=== PATIENT | female | born 1945 | race Caucasian/White ===

== ENCOUNTER → 2018-08-24 09:56 | Outpatient (CLI) | payer MEDICARE, SELFPAY ==
--- NOTE | 2018-08-24 10:00 | XR_ITS ---
XR DEXA axial skeleton HISTORY: ITS.REASON: OSTEOPENIA ORDERING PHYSICIAN: Uzair Miller MD PATIENT AGE: 73 years COMPARISON: 07/31/2016 FINDINGS: The BMD measured at the Left femoral neck is 0.775 g/cm squared with a T score of -1.9. This is considered Osteopenic according to the World Health Organization criteria. Fracture risk is Moderate. Treatment is advised. The L1 L4 density has a T score of 1.5 and has increased by 4.4%. The hip density has decreased by 1.8%. IMPRESSION: Osteopenia with moderate fracture risk. Treatment is advised. Suggest follow-up exam July 2020
== END ==
PROVIDERS: PCP Family Medicine; Visit Provider Family Medicine
DX: M85.89 Other specified disorders of bone density and structure, multiple sites (principal)
CPT/HCPCS: 77080

== ENCOUNTER 2018-10-08 08:16 | Observation (INO) ==
[2018-10-08 08:11] LABS: Basophils % 0.5 % (0.1-2.0); Eosinophils # 0.1 K/mm3 (0.0-0.4); Hemoglobin 11.7 g/dL (12.2-16.2); Lymphocytes # 1.5 K/mm3 (0.7-4.5); Lymphocytes % 24.9 % (10-50); Mean Corpuscular HGB Conc 33.5 g/dL (31.8-35.4); Mean Corpuscular Volume 83.6 fl (81-99); Mean Platelet Volume 8.2 fl (7.4-10.4); Monocytes # 0.4 K/mm3 (0.1-1.0); Monocytes % 7.6 % (1.7-9.3); Neutrophils # 3.8 K/mm3 (1.8-7.8); Neutrophils % 65.1 % (37.0-80.0); Platelet Count 138 K/mm3 (142-424); Red Blood Count 4.19 M/mm3 (4.20-5.40); Red Cell Distribution Width 13.2 % (11.5-17.5); White Blood Count 5.8 K/mm3 (4.8-10.8)
--- NOTE | 2018-10-08 08:21 | Emergency Department Note ---
ED Disposition Clinical Impression: Bradycardia Disposition: Admitted as Observation Condition on Discharge: Good Instructions: DI for Gastrointestinal Bleeding Time of Disposition: 09:07 - Critical Care Critical Care Time: No Attestation: On , the high probability of a clinically significant, sudden or life threatening deterioration of the following system(s) required my full and direct attention, intervention and personal management. The time I documented below is in addition to time spent performing reported procedures but includes the following listed in this critical care notation. Medical Decision Making - Medical Records Medical records reviewed: Yes: I reviewed the patient's medical records. - David Inquiry Pt receiving controlled substance: No David was queried for this patient: No Vital Signs: 10/08/18 07:47 10/08/18 07:54 10/08/18 08:16 Temperature 98.2 F Temperature Source Oral Pulse Rate [Right Radial] 45 L 48 L 54 L Respiratory Rate 16 Blood Pressure [Right Arm] 154/62 H 166/77 H 165/75 H Blood Pressure Mean [Right Arm] 92 106 105 Blood Pressure Source [Right Arm] Automatic Cuff Blood Pressure Position [Right Arm] Sitting 02 Sat by Pulse Oximetry 100 100 99 Oxygen Delivery Method Room Air 10/08/18 08:30 Temperature Temperature Source Pulse Rate [Right Radial] 51 L Respiratory Rate Blood Pressure [Right Arm] 174/70 H Blood Pressure Mean [Right Arm] 104 Blood Pressure Source [Right Arm] Blood Pressure Position [Right Arm] 02 Sat by Pulse Oximetry 99 Oxygen Delivery Method - Lab Data Lab results reviewed: Yes: I reviewed the patient's lab results. Lab Results 10/08/18 08:00: WBC 5.8, RBC 4.19 L, Hgb 11.7 L, Hct 35.0 L, MCV 83.6, MCH 28.0, MCHC 33.5, RDW 13.2, Plt Count 138 L, MPV 8.2, Neut % (Auto) 65.1, Lymph % (Auto) 24.9, [place] % (Auto) 7.6, Eos % (Auto) 2.0, Baso % (Auto) 0.5, Neut # (Auto) 3.8, Lymph # (Auto) 1.5, [place] # (Auto) 0.4, Eos # (Auto) 0.1, Baso # (Auto) 0.0 10/08/18 08:00: Sodium 137, Potassium 3.5, Chloride 103, Carbon Dioxide 29, Anion Gap 8.5, BUN 19 H, Creatinine 1.11 H, Estimated Creat Clear 40, Estimated GFR 48 L, Est GFR ( Amer) 58 L, Glucose 149 H, Calcium 9.0, Total Bilirubin 0.5, AST 40 H, ALT 84 H, Alkaline Phosphatase 57, Total Protein 6.7, Albumin 3.4, Globulin 3.3 H, Albumin/Globulin Ratio 1.0 L 10/08/18 08:00: PT 10.5, INR 1.01, APTT 22.8 L 10/08/18 08:00: Troponin I 0.04 Result diagrams: 10/08/18 08:00 10/08/18 08:00 Orders (Tests/Meds): ED MEDICATIONS Discontinued Medications Generic Name Dose Route Start Last Admin Trade Name Freq PRN Reason Stop Dose Admin Sodium Chloride 1,000 mls @ 999 mls/hr 10/08/18 07:54 10/08/18 08:10 Sod Chlor 0.9% 1000ml Bag IV 10/08/18 08:54 999 mls/hr .Q1H1M ONE Administration Ondansetron HCl 4 mg 10/08/18 07:54 10/08/18 08:10 Zofran 4mg/2ml Vial IV 10/08/18 07:55 4 mg ONCE ONE Administration ORDERS Category Date Time Status Occult Blood,Stool Stat Lab 10/08/18 07:53 Ordered General Adult HPI - General Chief complaint: GI Bleed Stated complaint: BLOODY STOOL Time Seen by Provider: 10/08/18 08:10 Mode of Arrival: EMS Source of Information: Patient, Significant Other, EMS Limitations: No Limitations Description of Symptoms (Recalled from ER Triage Doc. by RN): PT BROUGHT IN PER EMS WITH C/O BLOODY STOOL THIS AM, CAUSING HER TO PASS OUT WHILE IN THE BATHROOM. PT WAS FOUND BY WITH NO KNOWN INJURIES FROM FALL. PT C/O NAUSEA AND BRADYCARDIA SINCE THIS AM. PT ADVISES THAT SHE HAD HER FIRST COLONOSCOPY ON THURSDAY OF THIS WEEK. - History of Present Illness HPI narrative: syncope this am in the bathroom, heard her hit the floor. NO injuries. blood was in the toilet. did have colonoscopy thursday in [facility]. single polypectomy. heart rate staying in the 40's here in ED, she's on metoprolol 25 mg am, 25 mg pm with last dose 11 pm - Related Data Allergies Allergy/AdvReac Type Severity Reaction Status Date / Time No Known Allergies Allergy Verified 10/08/18 07:[address] [facility] History - Hepatitis A Screen Drug use history?: No High risk sexual behaviors?: No History of sexually transmitted infection?: No Currently employed?: No Childcare worker?: No Do you have indoor plumbing?: Yes Do you have electricity?: Yes Attestation statement:: This patient has been screened for Hepatitis A risk factors. I have reviewed the patient's past medical history: Yes Medical History: Denies:: Diabetes Mellitus Type 1, Diabetes Mellitus Type 2 - Social History Smoking Status: Never smoker Alcohol Intake: never Occupational Status: retired Household Members: spouse ROS Obtained: Yes All systems reviewed & no additional complaints - Constitutional Constitutional: Reports fatigue - Eyes Eyes: Reports system reviewed and no additional complaints, except as docu - Cardiovascular Cardiovascular: Denies chest pain, Denies dyspnea - Respiratory Respiratory: No chest congestion, No cough, No dyspnea, No dyspnea on exertion - Gastrointestinal Gastrointestingal: Reports: bright red blood in stools. Denies: abdominal pain, nausea, vomiting - Genitourinary Female Genitourinary: Denies dysuria, Denies flank pain - Musculoskeletal Musculoskeletal: Reports system reviewed and no additional complaints, except as docu - Integumentary/Breasts Skin/Breast: Denies rash, Denies skin pain - Neurologic Neurologic: Reports system reviewed and no additional complaints, except as docu, Reports syncope - Hematologic/Lymphatic Henatologic/Lymphatic: Denies easy bleeding, Denies easy bruising Physical Exam - General General appearance: alert, in no apparent distress - Head Head exam: atraumatic - Eye Eye exam: Present: normal appearance - ENT ENT exam: Present: normal exam, normal oropharynx, mucous membranes moist, TM's normal bilaterally, normal external ear exam - Respiratory Respiratory exam: Present: normal lung sounds bilaterally. Absent: respiratory distress - Cardiovascular Cardiovascular exam: Present: bradycardia, other (rate is 40-45) - Abdominal Exam Abdominal exam: Present: soft. Absent: distention, tenderness - Extremities Exam Extremities exam: Present: normal inspection, full ROM, normal capillary refill. Absent: calf tenderness - Back Exam Back exam: Present: normal inspection. Absent: tenderness - Neurological Exam Neurological exam: Present: alert, oriented X3 - Psychiatric Psychiatric exam: Present: normal affect, normal mood - Skin Skin exam: Present: warm, dry, intact, normal color
[2018-10-08 08:29] LABS: Albumin Level 3.4 gm/dL (3.4-5.0); Anion Gap 8.5 mEq/L (5-15); Bilirubin,Total 0.5 mg/dL (0.2-1.0); Globulin 3.3 gm/dl (1.3-3.2); Total Protein,Serum 6.7 gm/dL (6.4-8.2)
[2018-10-08 08:43] LABS: Activated Partial Thrombo Time 22.8 seconds (23.6-34.0); INR 1.01 (0.9-1.1); Prothrombin Time 10.5 seconds (9.4-11.8)
--- NOTE | 2018-10-08 09:59 | History & Physical Report ---
*Admission Date: 10/08/18 <Marlyn Calvert 10/08/18 10:03> *Chief complaint: syncope <Marlyn Calvert 10/08/18 10:03> *History of present illness: Ms. Mahan is a 73-year-old female who just recently had a colonoscopy 10/06/18. She did have a polyp removed and this morning when she went to the bathroom, her heard a thud and went to check on her. She does not remember what happened but he found her on the floor unconscious. He noticed some blood in the toilet and states it was bright red in nature. He brought her to the emergency room for evaluation. Her H&H was normal but she was bradycardic with heart rates in the 40-60 range. She does currently take a beta -terri. She will be admitted for observation. Her beta-terri will be held and her H&H will be monitored. <Marlyn Calvert 10/08/18 11:19> [facility] History I have reviewed the patient's past medical history: Yes <Marlyn Calvert 10/08/18 10:03> Medical History: Reports:: Cancer (breast), Hyperlipidemia, Hypertension Denies:: Diabetes Mellitus Type 1, Diabetes Mellitus Type 2 <Marlyn Calvert 10/08/18 10:03> *Have you ever received a pneumonia vaccine?: Yes <Marlyn Calvert 10/08/18 10:03> *Have you received a flu vaccine this season?: Yes <Marlyn Calvert 10/08/18 10:03> Other Medical History: Reports: Other (hyperthyroidism s/p ablation, palpitations, lumbar spinal stenosis) <Marlyn Calvert 10/08/18 11:19> Other Surgeries: Yes: Hysterectomy-Partial, Tubal Ligation, Other (left lumpectomy, lumbar laminectomy) <Marlyn Calvert 10/08/18 11:19> - *Social History Smoking Status: Never smoker <Marlyn Calvert 10/08/18 10:03> Alcohol Intake: never <Marlyn Calvert 10/08/18 10:03> *Occupational Status:: retired <Marlyn Calvert 10/08/18 10:03> Household Members: spouse <Marlyn Calvert - 10/08/18 10:03> *Travel in the last 8 weeks: None <Marlyn Calvert 10/08/18 10:03> Family Hx:: Cancer <Marlyn Calvert 10/08/18 10:03> Review of Systems - Constitutional Reports chills, Denies fever(s), Denies weakness <Marlyn Calvert 10/08/18 11:19> - Eyes Denies blurry vision, Denies double vision <Marlyn Calvert 10/08/18 11:19> - ENT Denies nasal congestion, Denies sore throat <Marlyn Calvert 10/08/18 11:19> - *Cardiovascular Denies chest pain, Denies shortness of breath, Denies rapid, pounding, or irregular heartbeat <Marlyn Calvert 10/08/18 11:19> - *Respiratory Denies cough, Denies shortness of breath <Marlyn Calvert 10/08/18 11:19> - *Gastrointestinal Reports abdominal pain (cramps), Reports loose stools, Reports bright, red blood in stools, Reports nausea, Denies vomiting <Marlyn Calvert 10/08/18 11:19> - *Genitourinary Denies difficulty urinating, Denies painful urination <Marlyn Calvert 10/08/18 11:19> - *Musculoskeletal Denies joint pain <Marlyn Calvert 10/08/18 11:19> - *Neurologic Reports fainting, Denies frequent falls, Denies headache(s), Denies dizziness <Marlyn Calvert 10/08/18 11:19> Meds Home Medications Medication Instructions Recorded Confirmed Type Aspirin [Aspirin 81mg EC Tab] 81 mg PO DAILY 10/08/18 10/08/18 History Levothyroxine Sodium 75 mcg PO DAILY 10/08/18 10/08/18 History [Levothyroxine 75mcg (0.075mg) Tab] Lisinopril/Hydrochlorothiazide 2 tab PO DAILY 10/08/18 10/08/18 History [Lisinopril-Hctz 20-12.5 mg Tab] Metoprolol Tartrate [Lopressor 25 mg PO BID 10/08/18 10/08/18 History 25mg tablet] Simvastatin 20 mg PO HS 10/08/18 10/08/18 History <Uzair Miller - 10/08/18 17:54> Allergies Allergy/AdvReac Type Severity Reaction Status Date / Time No Known Allergies Allergy Verified 10/08/18 07:53 <Uzair Miller - 10/08/18 17:54> Exam Vital signs and Labs for Last 24 Hours: Temp Pulse Resp BP Pulse Ox 98.2 F 62 15 145/62 H 100 10/08/18 15:31 10/08/18 16:00 10/08/18 15:31 10/08/18 15:31 10/08/18 15:31 Laboratory Results - last 24 hr 10/08/18 08:00: WBC 5.8, RBC 4.19 L, Hgb 11.7 L, Hct 35.0 L, MCV 83.6, MCH 28.0, MCHC 33.5, RDW 13.2, Plt Count 138 L, MPV 8.2, Neut % (Auto) 65.1, Lymph % (Auto) 24.9, [place] % (Auto) 7.6, Eos % (Auto) 2.0, Baso % (Auto) 0.5, Neut # (Auto) 3.8, Lymph # (Auto) 1.5, [place] # (Auto) 0.4, Eos # (Auto) 0.1, Baso # (Auto) 0.0 10/08/18 08:00: Sodium 137, Potassium 3.5, Chloride 103, Carbon Dioxide 29, Anion Gap 8.5, BUN 19 H, Creatinine 1.11 H, Estimated Creat Clear 40, Estimated GFR 48 L, Est GFR ( Amer) 58 L, Glucose 149 H, Calcium 9.0, Total Bilirubin 0.5, AST 40 H, ALT 84 H, Alkaline Phosphatase 57, Total Protein 6.7, Albumin 3.4, Globulin 3.3 H, Albumin/Globulin Ratio 1.0 L 10/08/18 08:00: PT 10.5, INR 1.01, APTT 22.8 L 10/08/18 08:00: Troponin I 0.04 10/08/18 12:25: Hgb 11.3 L, Hct 33.8 L 10/08/18 12:25: Troponin I 0.05 10/08/18 15:11: Hgb 10.4 L, Hct 30.6 L 10/08/18 15:11: Troponin I 0.04 <PaulUzair Urbano - 10/08/18 17:54> Temp Pulse Resp BP Pulse Ox 98.2 F 49 L 16 158/64 H 100 10/08/18 07:47 10/08/18 09:30 10/08/18 07:47 10/08/18 09:30 10/08/18 09:30 Laboratory Results - last 24 hr 10/08/18 08:00: WBC 5.8, RBC 4.19 L, Hgb 11.7 L, Hct 35.0 L, MCV 83.6, MCH 28.0, MCHC 33.5, RDW 13.2, Plt Count 138 L, MPV 8.2, Neut % (Auto) 65.1, Lymph % (Auto) 24.9, [place] % (Auto) 7.6, Eos % (Auto) 2.0, Baso % (Auto) 0.5, Neut # (Auto) 3.8, Lymph # (Auto) 1.5, [place] # (Auto) 0.4, Eos # (Auto) 0.1, Baso # (Auto) 0.0 10/08/18 08:00: Sodium 137, Potassium 3.5, Chloride 103, Carbon Dioxide 29, Anion Gap 8.5, BUN 19 H, Creatinine 1.11 H, Estimated Creat Clear 40, Estimated GFR 48 L, Est GFR ( Amer) 58 L, Glucose 149 H, Calcium 9.0, Total Bilirubin 0.5, AST 40 H, ALT 84 H, Alkaline Phosphatase 57, Total Protein 6.7, Albumin 3.4, Globulin 3.3 H, Albumin/Globulin Ratio 1.0 L 10/08/18 08:00: PT 10.5, INR 1.01, APTT 22.8 L 10/08/18 08:00: Troponin I 0.04 <Marlyn Calvert - 10/08/18 10:03> I & O for Last 24 hours: Intake & Output 10/06/18 10/07/18 10/08/18 10/09/18 11:59 11:59 11:59 11:59 Intake Total 480 / 480 Output Total 300 / 300 1050 / 1050 Balance -300 / -300 -570 / -570 Weight 124 lb 2 oz <Uzair Miller - 10/08/18 17:54> Intake & Output 10/05/18 10/06/18 10/07/18 10/08/18 11:59 11:59 11:59 11:59 Weight 125 lb <Marlyn Calvert 10/08/18 10:03> - Constitutional no acute distress <Marlyn Calvert 10/08/18 11:19> - *Routine HEENT Exam Head: Present: normocephalic <Marlyn Calvert 10/08/18 11:19> Eye: Present: EOMI, PERRL <Marlyn Calvert 10/08/18 11:19> ENT: Present: mucous membranes dry <Marlyn Calvert 10/08/18 11:19> - *Routine Neck Exam Present: supple. Absent: lymphadenopathy <Marlyn Calvert 10/08/18 11:19> - *Routine Respiratory Exam Present: CTA bilaterally <Marlyn Calvert 10/08/18 11:19> - *Routine Cardiovascular Exam Present: RRR <Marlyn Calvert 10/08/18 11:19> - *Routine Abdominal Exam Present: soft, normoactive bowel sounds. Absent: tenderness <Marlyn Calvert 10/08/18 11:19> - *Routine Extremities Exam Absent: cyanosis, clubbing, edema <Marlyn Calvert 10/08/18 11:19> - *Routine Skin Exam Present: warm. Absent: rash <Marlyn Calvert 10/08/18 11:19> - *Routine Neurological Exam Present: alert, oriented X3 <[facility] 10/08/18 11:19> Assessment and Plan (1) Bradycardia Current visit: Yes Status: Acute Category: Medical Code(s): R00.1 - Bradycardia, unspecified (2) Syncope Current visit: Yes Status: Acute Category: Medical Code(s): R55 - Syncope and collapse (3) Rectal bleeding Current visit: Yes Status: Acute Category: Medical Code(s): K62.5 - Hemo rrhage of anus and rectum (4) Status post colonoscopy with polypectomy Current visit: Yes Status: Acute Category: Surgical Code(s): Z98.890 - Other specified postprocedural states (5) Hypertension Current visit: Yes Status: Chronic Category: Medical Code(s): I10 - Essential (primary) hypertension (6) Hyperlipidemia Current visit: Yes Status: Chronic Category: Medical Code(s): E78.5 - Hyperlipidemia, unspecified (7) History of breast cancer Current visit: Yes Status: Chronic Category: Medical Code(s): Z85.3 - Personal history of malignant neoplasm of breast <Marlyn Calvert - 10/08/18 11:15> (1) Bradycardia Current visit: Yes Status: Acute Category: Medical Code(s): R00.1 - Bradycardia, unspecified (2) Syncope Current visit: Yes Status: Acute Category: Medical Code(s): R55 - Syncope and collapse (3) Rectal bleeding Current visit: Yes Status: Acute Category: Medical Code(s): K62.5 - Hemorrhage of anus and rectum (4) Status post colonoscopy with polypectomy Current visit: Yes Status: Acute Category: Surgical Code(s): Z98.890 - Other specified postprocedural states (5) Hypertension Current visit: Yes Status: Chronic Category: Medical Code(s): I10 - Essential (primary) hypertension (6) Hyperlipidemia Current visit: Yes Status: Chronic Category: Medical Code(s): E78.5 - Hyperlipidemia, unspecified (7) History of breast cancer Current visit: Yes Status: Chronic Category: Medical Code(s): Z85.3 - Personal history of malignant neoplasm of breast <Uzair Miller - 10/08/18 17:54> - Assessment and plan all Dx Assessment and Plan for all problems:: Patient seen and examined. Concur with asssessment and plan as outlined. <Uzair Miller - 10/08/18 17:54> Patient will be admitted and placed on telemetry to monitor HR. Her beta terri will be held. Will monitor H&H and rectal bleeding as well. <Marlyn Calvert - 10/08/18 11:19>
--- NOTE | 2018-10-08 10:34 | Pharmacy Consult Notes ---
[facility] Pharmacy VTE Monitoring - Patient Demographics Admission date: 10/08/18 Report Date: 10/08/18 Time: 10:34 Allergies/Adverse Reactions: Patient Allergies No Known Allergies Allergy (Verified 10/08/18 07:53) Height: 1.52 m Weight: 56.699 kg Patient Problems: Current Active Problems (Updated 10/08/18 @ 10:03 by LANDON Love) Bradycardia (Acute) Syncope (Acute) Rectal bleeding (Acute) Status post colonoscopy with polypectomy (Acute) Hypertension (Chronic) Hyperlipidemia (Chronic) History of breast cancer (Chronic) - VTE Risk Labs: VTE Related Lab Results Hgb 11.7 g/dL (12.2-16.2) L 10/08/18 08:00 Hct 35.0 % (37.0-47.0) L 10/08/18 08:00 Plt Count 138 K/mm3 (142-424) L 10/08/18 08:00 PT 10.5 seconds (9.4-11.8) 10/08/18 08:00 INR 1.01 (0.9-1.1) 10/08/18 08:00 APTT 22.8 seconds (23.6-34.0) L 10/08/18 08:00 BUN 19 mg/dL (7-18) H 10/08/18 08:00 Creatinine 1.11 mg/dL (0.55-1.02) H 10/08/18 08:00 Estimated Creat Clear 40 mL/min (50-200) 10/08/18 08:00 - Prophylaxis VTE Prophylaxis Ordered?: Yes Types of VTE Prophylaxis: TEDS Knee High Location of Applied Device: Bilateral Lower Extremeties - VTE Diagnosis Confirmed Treatment or plan recommended: Continue Current Treatment
[2018-10-08 12:42] LABS: Hematocrit 33.8 % (37.0-47.0); Hemoglobin 11.3 g/dL (12.2-16.2)
[2018-10-08 16:08] LABS: Hematocrit 30.6 % (37.0-47.0); Hemoglobin 10.4 g/dL (12.2-16.2)
[2018-10-08 18:26] LABS: Hematocrit 30.6 % (37.0-47.0); Hemoglobin 10.4 g/dL (12.2-16.2)
[2018-10-09 07:00] LABS: Anion Gap 11.3 mEq/L (5-15); Calcium 8.3 mg/dL (8.5-10.1)
--- NOTE | 2018-10-09 08:22 | Progress Note ---
Internal Medicine - PN: Subj *Date: 10/09/18 *Time: 13:10 Interval history: States that she rested well last night. She feels good this morning. She has been up to the bathroom and is tolerating activity with no lightheadedness or dizziness. No complaints of chest pain or shortness of breath. Exam Vital signs and Labs for Last 24 Hours: Temp Pulse Resp BP Pulse Ox 98.2 F 73 17 161/54 H 98 10/09/18 07:37 10/09/18 07:37 10/09/18 07:37 10/09/18 07:37 10/09/18 07:37 Laboratory Results - last 24 hr 10/08/18 08:00: Sodium 137, Potassium 3.5, Chloride 103, Carbon Dioxide 29, Anion Gap 8.5, BUN 19 H, Creatinine 1.11 H, Estimated Creat Clear 40, Estimated GFR 48 L, Est GFR ( Amer) 58 L, Glucose 149 H, Calcium 9.0, Total Bilirubin 0.5, AST 40 H, ALT 84 H, Alkaline Phosphatase 57, Total Protein 6.7, Albumin 3.4, Globulin 3.3 H, Albumin/Globulin Ratio 1.0 L 10/08/18 08:00: PT 10.5, INR 1.01, APTT 22.8 L 10/08/18 08:00: Troponin I 0.04 10/08/18 12:25: Hgb 11.3 L, Hct 33.8 L 10/08/18 12:25: Troponin I 0.05 10/08/18 15:11: Hgb 10.4 L, Hct 30.6 L 10/08/18 15:11: Troponin I 0.04 10/08/18 18:19: Hgb 10.4 L, Hct 30.6 L 10/09/18 06:10: Sodium 142, Potassium 3.3 L, Chloride 108 H, Carbon Dioxide 26, Anion Gap 11.3, BUN 10 D, Creatinine 1.02, Estimated Creat Clear 43, Estimated GFR 53 L, Est GFR ( Amer) 64, Glucose 110 H D, Calcium 8.3 L I & O for Last 24 hours: Intake & Output 10/06/18 10/07/18 10/08/18 10/09/18 11:59 11:59 11:59 11:59 Intake Total 2190 / 2190 Output Total 300 / 300 2250 / 2250 Balance -300 / -300 -60 / -60 Weight 124 lb 2 oz 124 lb 5 oz Narrative: She is alert and oriented. She appears in no distress. Color is normal. Lungs are clear to auscultation. Heart is regular with no ectopy. Heart rate is in the 50s. Extremities no edema. Assessment and Plan (1) Bradycardia Status: Acute Category: Medical Code(s): R00.1 - Bradycardia, unspecified (2) Syncope Status: Acute Category: Medical Code(s): R55 - Syncope and collapse (3) Rectal bleeding Status: Acute Category: Medical Code(s): K62.5 - Hemorrhage of anus and rectum (4) Status post colonoscopy with polypectomy Status: Acute Category: Surgical Code(s): Z98.890 - Other specified postprocedural states (5) Hypertension Status: Chronic Category: Medical Code(s): I10 - Essential (primary) hypertension (6) Hyperlipidemia Status: Chronic Category: Medical Code(s): E78.5 - Hyperlipidemia, unspecified (7) History of breast cancer Status: Chronic Category: Medical Code(s): Z85.3 - Personal history of malignant neoplasm of breast - Assessment and plan all Dx Assessment and Plan for all problems:: She is stable for discharge. H&H is stable. Bradycardia should continue to improve as she remains off the metoprolol. She will be started on Norvasc for blood pressure control. She will continue her lisinopril. She will also be prescribed a potassium supplement for the next 2 weeks. She is to follow-up in the office for recheck in 5 days.
[2018-10-09 08:27] LABS: Basophils % 0.7 % (0.1-2.0); Eosinophils # 0.2 K/mm3 (0.0-0.4); Eosinophils % 3.9 % (0.1-12.0); Hematocrit 30.3 % (37.0-47.0); Lymphocytes # 1.7 K/mm3 (0.7-4.5); Lymphocytes % 34.8 % (10-50); Mean Corpuscular HGB Conc 33.1 g/dL (31.8-35.4); Mean Platelet Volume 8.6 fl (7.4-10.4); Monocytes # 0.4 K/mm3 (0.1-1.0); Monocytes % 8.4 % (1.7-9.3); Neutrophils # 2.5 K/mm3 (1.8-7.8); Neutrophils % 52.3 % (37.0-80.0); Platelet Count 124 K/mm3 (142-424); Red Cell Distribution Width 13.6 % (11.5-17.5); White Blood Count 4.8 K/mm3 (4.8-10.8)
--- NOTE | 2018-10-11 09:38 | Discharge Summary ---
General - General Admission date:: 10/08/18 <Uzair Miller - 10/12/18 20:03> 10/08/18 <Minda Barros - 10/11/18 09:38> Discharge date: 10/09/18 <Minda Barros - 10/11/18 09:43> HPI HPI: Ms. Mahan was a 73-year-old female who had just recently had a colonoscopy on 10/06/18. She did have a polyp removed and on the morning of admission, when she went to the bathroom, her heard a thud and went to check on her. She did not remember what happened but he found her on the floor unconscious. He noticed some blood in the toilet and stated it was bright red in nature. He brought her to the emergency room for evaluation. Her H&H was normal but she was bradycardic with heart rates in the 40-60 range. She was taking a beta- terri. She was admitted for observation. Her beta-terri was held and her H&H was monitored. <Minda Barros - 10/11/18 09:43> Hospital Course Hospital Course: The following morning she was feeling well. Her bradycardia was improved. Her H&H was stable. She was started on Norvasc for blood pressure control and instructed to remain off her beta-terri. She was started on oral potassium supplement. She was felt to be stable for discharge with followup in the office in 5 days. <Minda Barros - 10/11/18 09:43> Objective Vital signs: Temp Pulse Resp BP Pulse Ox 98.2 F 56 L 17 161/54 H 98 10/09/18 07:37 10/09/18 08:00 10/09/18 07:37 10/09/18 07:37 10/09/18 07:37 <PaulUzair Urbano - 10/12/18 20:03> Temp Pulse Resp BP Pulse Ox 98.2 F 56 L 17 161/54 H 98 10/09/18 07:37 10/09/18 08:00 10/09/18 07:37 10/09/18 07:37 10/09/18 07:37 <Minda Barros - 10/11/18 09:38> DS: Diagnosis - Discharge Diagnosis (1) Bradycardia Status: Acute (2) Syncope Status: Acute (3) Rectal bleeding Status: Acute (4) Status post colonoscopy with polypectomy Status: Acute (5) Hypertension Status: Chronic (6) Hyperlipidemia Status: Chronic (7) History of breast cancer Status: Chronic <Minda Barros - 10/11/18 09:38> (1) Bradycardia Status: Acute (2) Syncope Status: Acute (3) Rectal bleeding Status: Acute (4) Status post colonoscopy with polypectomy Status: Acute (5) Hypertension Status: Chronic (6) Hyperlipidemia Status: Chronic (7) History of breast cancer Status: Chronic <Uzair Miller - 10/12/18 20:03> Discharge Plan - Patient Discharge Instructions ACTIVITY: Continue current activity <Minda Barros - 10/11/18 09:38> DIET: continue same diet <Minda Barros - 10/11/18 09:38> Patient Instructions: DI for Syncope in Adults (Fainting), DI for Rectal Bleeding, DI for Bradycardia <Uzair Miller - 10/12/18 20:03> Forms: <Uzair Miller - 10/12/18 20:03> - Follow up Plan Follow up with: Uzair Miller MD [Primary Care Provider] - 10/14/18 (in [facility]) <Uzair Miller - 10/12/18 20:03> Disposition: Home, Self-Care <Uzair Miller - 10/12/18 20:03> Home Medications: Home Medications Medication Instructions Recorded Confirmed Type Aspirin [Aspirin 81mg EC Tab] 81 mg PO DAILY 10/08/18 10/08/18 History Levothyroxine Sodium 75 mcg PO DAILY 10/08/18 10/08/18 History [Levothyroxine 75mcg (0.075mg) Tab] Lisinopril/Hydrochlorothiazide 2 tab PO DAILY 10/08/18 10/08/18 History [Lisinopril-Hctz 20-12.5 mg Tab] Simvastatin 20 mg PO HS 10/08/18 10/08/18 History Amlodipine Besylate [Norvasc 2.5mg 0 mg PO DAILY #30 tab 10/09/18 Rx tablet] Potassium Chloride [Micro-K 10mEq 10 meq PO DAILY #15 cap 10/09/18 Rx cap] <Uzair Miller - 10/12/18 20:03> Prescriptions/Medication Reconciliation: New Potassium Chloride [Micro-K 10mEq cap] 10 meq PO DAILY #15 cap Amlodipine Besylate [Norvasc 2.5mg tablet] 0 mg PO DAILY #30 tab Continued Simvastatin 20 mg PO HS Levothyroxine Sodium [Levothyroxine 75mcg (0.075mg) Tab] 75 mcg PO DAILY Lisinopril/Hydrochlorothiazide [Lisinopril-Hctz 20-12.5 mg Tab] 2 tab PO DAILY Aspirin [Aspirin 81mg EC Tab] 81 mg PO DAILY Discontinued Metoprolol Tartrate [Lopressor 25mg tablet] 25 mg PO BID <Uzair Miller - 10/12/18 20:03> - Additional Information Additional Information: Concur with plan for discharge as outlined above. <Uzair Miller - 10/12/18 20:03>
== END 2018-10-09 09:55 | disposition home or self-care (01) ==
LOC: 2ND 08:16 → ER 08:16 → 2ND 10:22
PROVIDERS: ADMIT Family Medicine; ATTEND Family Medicine
DX: Z85.3 Personal history of malignant neoplasm of breast; R00.1 Bradycardia, unspecified; Z79.899 Other long term (current) drug therapy; E78.5 Hyperlipidemia, unspecified; K62.5 Hemorrhage of anus and rectum; R55 Syncope and collapse; I10 Essential (primary) hypertension; Z86.010 Personal history of colon polyps; Z98.890 Other specified postprocedural states
CPT/HCPCS: 36415; 80048; 80053; 84484; 85014; 85018; 85025; 85610; 85730; 93005; 96365; 96375; 99285; G0378; J2405

== ENCOUNTER → 2019-11-15 12:56 | Outpatient (CLI) | payer MEDICARE, SELFPAY ==
[2019-11-15 13:47] LABS: Chloride 101 mmol/L (98-107); Sodium 139 mmol/L (136-145)
[2019-11-15 13:48] LABS: Potassium 4.6 mmoL/L (3.5-5.1)
[2019-11-15 13:50] LABS: Blood Urea Nitrogen 18 mg/dl (7-17); Estimated Glomerular Filt Rate 48 ml/min (>60); GFR (African American) 59 ML/MIN (>60)
[2019-11-15 13:51] LABS: Anion Gap 11.6 mEq/L (5-15); Calcium 10.1 mg/dl (8.4-10.2); Carbon Dioxide 31 mmol/L (22.0-30.0); Glucose 93 mg/dl (74-100)
[2019-11-15 14:22] LABS: Thyroid Stimulating Hormone 0.42 uIU/mL (0.465-4.68)
[2019-11-16 13:03] LABS: Prolactin 14.7 ng/mL (4.8-23.3)
== END ==
PROVIDERS: Visit Provider Specialist
DX: E03.9 Hypothyroidism, unspecified (principal); D35.2 Benign neoplasm of pituitary gland; E23.7 Disorder of pituitary gland, unspecified; H91.91 Unspecified hearing loss, right ear; H93.11 Tinnitus, right ear; R00.1 Bradycardia, unspecified; R42 Dizziness and giddiness; R90.89 Other abnormal findings on diagnostic imaging of central nervous system; Z87.898 Personal history of other specified conditions
CPT/HCPCS: 36415; 80048; 84146; 84443

== ENCOUNTER → 2019-11-23 08:41 | Outpatient (CLI) | payer MEDICARE, SELFPAY ==
--- NOTE | 2019-11-23 08:42 | MR_ITS ---
PROCEDURE: MR HEAD/BRAIN WO/W CON CLINICAL INDICATION: DEDICATED PITUITARY GLAND-PITUITARY GLAND LESION PT C/O DIZZINESS, FOLLOW-UP FROM PRIOR MRI. 11ML ZAHRAA LOT: [id number] EXP: 01-18 BUN: 18 CREAT: 1.1 GFR: 48 COMPARISON: MR 1.5T MR BRAIN WO from 09/01/2019 outside exam MR 1.5T MR BRAIN WITH from 09/01/2019 outside exam TECHNIQUE: Routine images are performed without and with contrast along with dynamic post enhanced images of the pituitary gland. FINDINGS: No midline shift, mass effect, intracranial hemorrhage, or hydrocephalus is evident. The cerebellopontine angles, cerebellum, and brainstem have an unremarkable appearance. No evidence of acute infarction. There are scattered periventricular and subcortical T2 white matter hyperintensities which are nonspecific and may be due to ischemic gliotic change from microvascular disease. These areas do not demonstrate contrast enhancement. The pituitary gland is enlarged. There is a nonenhancing lesion involving the central left lobe of the pituitary gland. This measures approximately 9 x 7 by 12 mm. This does extend slightly across midline and is causing some deviation of the pituitary stalk toward the right. This does not appear to extend beyond the margins of the pituitary. This does not appear significantly changed compared to the previous exam considering the difference in technique.. There is some downward bowing of the floor of the sella turcica. This was present on the previous study not significantly changed. This does not appear to be in felt in the carotid but does extend slightly along the inferior aspect of the cavernous portion of the carotid. IMPRESSION: 1. 12 x 9 x 7 mm pituitary nodule on the left slightly extending cross midline and causing some deviation of the stalk toward the right consistent with a pituitary macroadenoma. Probably not significantly changed considering the difference in technique 2. Scattered periventricular and subcortical T2 white matter hyperintensity consistent with ischemic gliotic change from microvascular disease. Dictated by: Hero Mendez MD 11/29/2019 13:13 Hero Mendez MD in [facility] 11/29/2019 13:13
== END ==
PROVIDERS: PCP Family Medicine; Visit Provider Specialist
DX: D35.2 Benign neoplasm of pituitary gland (principal); E03.9 Hypothyroidism, unspecified; E23.7 Disorder of pituitary gland, unspecified; H91.91 Unspecified hearing loss, right ear; H93.11 Tinnitus, right ear; R00.1 Bradycardia, unspecified; R42 Dizziness and giddiness; R90.89 Other abnormal findings on diagnostic imaging of central nervous system; Z87.898 Personal history of other specified conditions
CPT/HCPCS: 70553; A9576

== ENCOUNTER → 2019-12-09 10:03 | Outpatient (CLI) | payer MEDICARE, SELFPAY ==
--- NOTE | 2019-12-09 10:04 | CT_ITS ---
PROCEDURE: CT HEAD/BRAIN WO/W CON CLINICAL INDICATION: EVALUATION FOR ACOUSTIC NEUROMA Dizziness COMPARISON: No exams were available for comparison TECHNIQUE: IV Contrast: 100ML OPITRAY [address] Axial images obtained. All CT scans at the facility use one or more dose reduction, viz: automated exposure control, ma/kV adjustment per patient size (including targeted exams where dose is matched to indication, i.e. head), or iterative reconstruction technique. FINDINGS: Pre and post enhanced images are obtained of the brain. No midline shift, mass effect, intracranial hemorrhage, or hydrocephalus is evident. There is generalized atrophy with hypoattenuation of the periventricular white matter consistent with microangiopathic changes.. No enhancing lesions are evident. No acute calvarial abnormality. No mastoid effusion or sinus air-fluid level. IMPRESSION: No acute intracranial findings. No enhancing cerebellopontine angle mass apparent. Dictated by: Hero Mendez MD 12/09/2019 12:17 Hero Mendez MD in [facility] 12/09/2019 12:17
[2019-12-09 10:52] LABS: Blood Urea Nitrogen 16 mg/dl (7-17); Estimated Glomerular Filt Rate 54 ml/min (>60); GFR (African American) 65 ML/MIN (>60)
== END ==
PROVIDERS: Otolaryngology; PCP Family Medicine; Visit Provider Specialist
DX: D35.2 Benign neoplasm of pituitary gland (principal); E03.9 Hypothyroidism, unspecified; H91.91 Unspecified hearing loss, right ear; H93.11 Tinnitus, right ear; R00.1 Bradycardia, unspecified; R42 Dizziness and giddiness; R90.89 Other abnormal findings on diagnostic imaging of central nervous system; Z87.898 Personal history of other specified conditions
CPT/HCPCS: 36415; 70470; 82565; 84520; Q9967

== ENCOUNTER → 2019-12-09 10:32 | Outpatient (CLI) | payer MEDICARE, SELFPAY | PROVIDERS: Visit Provider Otolaryngology | DX: R42 Dizziness and giddiness (principal) ==

== ENCOUNTER → 2020-01-02 12:46 | Outpatient (CLI) | payer MEDICARE, SELFPAY ==
--- NOTE | 2020-01-02 12:46 | MR_ITS ---
PROCEDURE: MR HEAD/BRAIN WO/W CON CLINICAL INDICATION: rule out acoustic neuroma UNABLE TO HEAR OUT OF RT EAR XYRS. INTERMITTENT DIZZINESS. COMPARISON: MR 1.5T MR BRAIN WITH from 09/01/2019 MR MR HEAD/BRAIN WO/W CON from 11/23/2019 TECHNIQUE: Routine multiplanar multi echo sequences are performed without and with gadolinium enhancement.. Thin section images are obtained through the cerebellopontine angle without and with contrast. FINDINGS: No midline shift or mass effect. No acute intracranial hemorrhage or evidence of acute infarction. There is scattered periventricular and subcortical T2 white matter hyperintensities consistent with ischemic gliotic change from microvascular disease. This does not appear to be significantly changed. The cerebellopontine angles, cerebellum, and brainstem have an unremarkable appearance. No CP angle mass. No enhancing lesions of the CP angle. No mastoid effusion or sinus air-fluid level. There is an isointense nodule of the pituitary gland measuring 1.3 cm AP and 1 cm transverse consistent with a macroadenoma causing mild deviation of the stalk toward the right. This is not significantly changed from an older exam of 09/01/2019. IMPRESSION: 1. No evidence of cerebellopontine angle enhancement or mass. 2. Nonspecific periventricular and subcortical T2 white matter hyperintensities consistent with ischemic gliotic change from microvascular disease. 3. No change left-sided pituitary macro adenoma Dictated by: Hero Mendez MD 01/03/2020 10:34 Hero Mendez MD in [facility] 01/03/2020 10:34
== END ==
PROVIDERS: PCP Family Medicine; Visit Provider Otolaryngology
DX: H91.91 Unspecified hearing loss, right ear (principal)
CPT/HCPCS: 70553; A9576

== ENCOUNTER 2021-01-28 09:54 | Emergency (ER) | payer MEDICARE, SELFPAY ==
[2021-01-28 09:55] VITALS: BP 111/78; PULSE 84; RESP 16; TEMP 36.9; O2SAT 98; BMI 24.4
--- NOTE | 2021-01-28 09:57 | XR_ITS ---
PROCEDURE: XR KNEE LT 3V CLINICAL INDICATION: fall COMPARISON: No exams were available for comparison FINDINGS: No fracture or dislocation. No lytic or blastic change. There is normal mineralization. The joint spaces are well-preserved. No significant degenerative/arthritic changes. No erosive changes evident. Other findings:Chondrocalcinosis is present at the medial and lateral meniscus. Enthesophytes are present at the patella and tibial tuberosity IMPRESSION: No acute findings. Dictated by: Hero Mendez MD 01/28/2021 10:33 Hero Mendez MD in [facility] 01/28/2021 10:33
--- NOTE | 2021-01-28 09:57 | HMH.EDGENADL ---
ED Disposition Clinical Impression: Left knee pain Qualifiers: Chronicity: acute Qualified Code(s): M25.562 - Pain in left knee Disposition: Home, Self-Care Condition on Discharge: Good Additional Instructions: Medications as directed. Follow with your PCP in 1 to 2 days. Return to [facility] for fever, worsening pain, swelling of your knee. Prescriptions: cephALEXin [cephALEXin 500mg capsule*] 500 mg PO Q6H #28 cap Transmission Status: Pending to [facility] Hydrocodone/Acetaminophen [Hydrocodone-Acetamin 5-325 mg] 1 tab PO BID #4 tab Transmission Status: Received by [facility] Referrals: Uzair Miller MD [Primary Care Provider] - (Tomorrow) Time of Disposition: 10:58 - Critical Care Critical Care Time: No Attestation: On , the high probability of a clinically significant, sudden or life threatening deterioration of the following system(s) required my full and direct attention, intervention and personal management. The time I documented below is in addition to time spent performing reported procedures but includes the following listed in this critical care notation. Medical Decision Making - Medical Records Medical records reviewed: Yes: I reviewed the patient's medical records. - David Inquiry Pt receiving controlled substance: No Vital Signs: 01/28/21 09:55 Temperature 98.4 F Temperature Source Oral Pulse Rate [Radial] 84 Respiratory Rate 16 Blood Pressure [Right Arm] 111/78 Blood Pressure Mean [Right Arm] 89 Blood Pressure Position [Right Arm] Sitting 02 Sat by Pulse Oximetry 98 Oxygen Delivery Method Room Air - Radiology Data #1 Image(s): Knee Image Reviewed: Yes I reviewed the patient's radiology results, Yes I have reviewed radiologist's interpretation Preliminary Findings: Normal/NAD Medical Decision Narrative: 75yo F evaluated for pain to her left knee. Patient no acute distress on initial evaluation. Physical exam is significantly limited as the patient will not allow me to complete a thorough knee exam. X-rays obtained and unremarkable. Patient does have some erythema to her knee but I believe this is secondary to irritation from her Band-Aid. Patient has a history of diabetes and therefore I will go ahead and cover her with antibiotics in case the patient has an early cellulitis that is being mistaken for topical irritant from bandaging. General Adult HPI - General Stated complaint: AO fall 01/25 lt knee pain Time Seen by Provider: 01/28/21 09:58 Mode of Arrival: Ambulatory - History of Present Illness HPI narrative: 75[facility] F presents [facility] secondary to left knee pain. Patient reports she fell on Thursday. She reports suffering a mechanical fall. She denies any other injury. She reports she has been walking with a cane since that time. She denies any previous injury or surgery to her left knee. She denies any other injury. Her main complaint this morning is pain. She has not seen her PCP. - Related Data Home Medications Medication Instructions Recorded Confirmed Aspirin [Aspirin 81mg EC Tab] 81 mg PO DAILY 10/08/18 04/05/20 Lisinopril/Hydrochlorothiazide 2 tab PO DAILY 10/08/18 04/05/20 [Lisinopril-Hctz 20-12.5 mg Tab*] meclizine 25 mg tablet 25 mg PO PRN tab 10/18/19 04/05/20 metoprolol tartrate 25 mg tablet 12.5 mg PO DAILY tab 10/18/19 04/05/20 levothyroxine 75 mcg tablet 75 mcg PO tab 04/05/20 04/05/20 Previous Rx's Medication Instructions Recorded Amlodipine Besylate [Norvasc 2.5mg 0 mg PO DAILY #30 tab 10/09/18 tablet] ofloxacin 0.3 % ear drops 10 drp OTIC BID 14 Days #5 ml 04/05/20 Hydrocodone/Acetaminophen 1 tab PO BID #4 tab 01/28/21 [Hydrocodone-Acetamin 5-325 mg] cephALEXin [cephALEXin 500mg 500 mg PO Q6H #28 cap 01/28/21 capsule*] Allergies Allergy/AdvReac Type Severity Reaction Status Date / Time No Known Allergies Allergy Verified 04/05/20 12:35 [facility] History -
[2021-01-28 11:18] VITALS: BP 123/74; PULSE 78; RESP 18; TEMP 36.6; O2SAT 98
== END 2021-01-28 11:21 | disposition home or self-care (01) ==
PROVIDERS: Emergency Provider Family Medicine; PCP Family Medicine
DX: M25.562 Pain in left knee (principal); I10 Essential (primary) hypertension; I25.10 Atherosclerotic heart disease of native coronary artery without angina pectoris; E78.5 Hyperlipidemia, unspecified; E10.9 Type 1 diabetes mellitus without complications; E03.9 Hypothyroidism, unspecified; Z79.899 Other long term (current) drug therapy
CPT/HCPCS: 73562; 99282

== ENCOUNTER → 2021-11-27 06:47 | Outpatient (CLI) | payer MEDICARE, SELFPAY ==
[2021-11-27 22:18] LABS: Basophils # 0.1 K/mm3 (0-0.2); Eosinophils # 0.2 K/mm3 (0.0-0.4); Hematocrit 39.3 % (37.0-47.0); Hemoglobin 12.9 g/dL (12.2-16.2); Lymphocytes # 1.7 K/mm3 (0.7-4.5); Lymphocytes % 31.9 % (10-50); Mean Corpuscular HGB Conc 32.8 g/dL (31.8-35.4); Mean Corpuscular Volume 88.4 fl (81-99); Mean Platelet Volume 10.9 fl (7.4-10.4); Monocytes # 0.6 K/mm3 (0.1-1.0); Monocytes % 11.4 % (1.7-9.3); Neutrophils # 2.7 K/mm3 (1.8-7.8); Neutrophils % 51.7 % (37.0-80.0); Platelet Count 214 K/mm3 (142-424); Red Blood Count 4.45 M/mm3 (4.20-5.40); Red Cell Distribution Width 13.9 % (11.5-17.5); White Blood Count 5.3 K/mm3 (4.8-10.8)
[2021-11-27 22:20] LABS: Creatinine,Urine Random 121 mg/dL (Not Estab.); Microalbumin < 6.000 mg/L (0-16.7)
[2021-11-27 22:32] LABS: Anion Gap 9.7 mEq/L (5-15); Blood Urea Nitrogen 20 mg/dl (7-17); Calcium 9.6 mg/dl (8.4-10.2); Carbon Dioxide 27 mmol/L (22.0-30.0); Chloride 102 mmol/L (98-107); Chol/HDL Ratio 9.2 (1-3.5); Cholesterol 268 mg/dl (140-200); Estimated Glomerular Filt Rate 44 ml/min (>60); GFR (African American) 53 ML/MIN (>60); Glucose 134 mg/dl (74-100); HDL Cholesterol 29 mg/dl (40-60); Potassium 3.7 mmoL/L (3.5-5.1); Sodium 135 mmol/L (136-145)
[2021-11-27 22:34] LABS: Triglycerides 437 mg/dl (30-150)
[2021-11-27 22:48] LABS: Free T4 (Free Thyroxine) 1.54 ng/dl (0.78-2.19)
[2021-11-27 23:02] LABS: Thyroid Stimulating Hormone 0.77 uIU/mL (0.465-4.68)
[2021-11-30 08:21] LABS: Direct LDL Cholesterol 109 mg/dL (100-129)
== END ==
PROVIDERS: PCP Family Medicine; Visit Provider Family Medicine
DX: E03.9 Hypothyroidism, unspecified (principal); E78.5 Hyperlipidemia, unspecified; I10 Essential (primary) hypertension
CPT/HCPCS: 80048; 80061; 82043; 82570; 84439; 84443; 85025

== ENCOUNTER → 2022-04-23 14:25 | Outpatient (CLI) | payer MEDICARE, SELFPAY ==
[2022-04-23 19:36] LABS: Uric Acid 10.4 mg/dl (2.5-6.2)
[2022-04-23 19:46] LABS: Basophils # 0.1 K/mm3 (0-0.2); Basophils % 1.5 % (0.1-2.0); Eosinophils # 0.2 K/mm3 (0.0-0.4); Hematocrit 37.9 % (37.0-47.0); Hemoglobin 13.1 g/dL (12.2-16.2); Lymphocytes # 1.9 K/mm3 (0.7-4.5); Lymphocytes % 32.6 % (10-50); Mean Corpuscular HGB Conc 34.5 g/dL (31.8-35.4); Mean Corpuscular Hemoglobin 29.4 pg (27.0-31.2); Mean Corpuscular Volume 85.2 fl (81-99); Mean Platelet Volume 10.1 fl (7.4-10.4); Monocytes # 0.6 K/mm3 (0.1-1.0); Monocytes % 9.4 % (1.7-9.3); Neutrophils # 3.1 K/mm3 (1.8-7.8); Neutrophils % 52.6 % (37.0-80.0); Platelet Count 242 K/mm3 (142-424); Red Blood Count 4.45 M/mm3 (4.20-5.40); Red Cell Distribution Width 13.6 % (11.5-17.5); White Blood Count 5.9 K/mm3 (4.8-10.8)
[2022-04-23 21:13] LABS: Erythrocyte Sedimentation Rate 25 mm/hr (0-30)
== END ==
PROVIDERS: PCP Family Medicine; Visit Provider Family Medicine
DX: M79.675 Pain in left toe(s) (principal); M10.9 Gout, unspecified
CPT/HCPCS: 84550; 85025; 85651

== ENCOUNTER → 2022-05-19 23:43 | Outpatient (CLI) | payer MEDICARE, SELFPAY ==
[2022-05-19 18:41] LABS: Influenza A, PCR Not Detected (NotDetected); Influenza B, PCR Not Detected (NotDetected)
[2022-05-19 19:28] LABS: Anion Gap 9.4 mEq/L (5-15); Blood Urea Nitrogen 20 mg/dl (7-17); Calcium 9.1 mg/dl (8.4-10.2); Carbon Dioxide 29 mmol/L (22.0-30.0); Chloride 97 mmol/L (98-107); Estimated Glomerular Filt Rate 34 ml/min (>60); GFR (African American) 41 ML/MIN (>60); Glucose 84 mg/dl (74-100); Potassium 3.4 mmoL/L (3.5-5.1); Sodium 132 mmol/L (136-145)
[2022-05-19 21:30] LABS: Coronavirus 19, PCR Detected (NotDetected)
== END ==
PROVIDERS: PCP Nurse Practitioner; Visit Provider Nurse Practitioner
DX: J06.9 Acute upper respiratory infection, unspecified (principal); Z20.822 Contact with and (suspected) exposure to COVID-19; U07.1 COVID-19
CPT/HCPCS: 80048; C9803; U0003; U0005

== ENCOUNTER 2022-11-04 08:15 | Day surgery (SDC) | payer MEDICARE, SELFPAY ==
[2022-10-31 16:58] VITALS: BMI 24.4
[2022-11-04] VITALS (7 sets, daily range): BP systolic 121–165; BP diastolic 57–85; PULSE 54–65; RESP 16–18; TEMP 36.2–36.3; O2SAT 97–100
== END 2022-11-04 11:30 | disposition home or self-care (01) ==
PROVIDERS: PCP Nurse Practitioner; Visit Provider Ophthalmology
DX: H25.811 Combined forms of age-related cataract, right eye (principal)
CPT/HCPCS: 66984; V2632

== ENCOUNTER → 2022-11-11 12:43 | Outpatient (CLI) | payer MEDICARE, SELFPAY ==
[2022-11-11 18:49] LABS: Basophils # 0.1 K/mm3 (0-0.2); Basophils % 0.7 % (0.1-2.0); Eosinophils # 0.2 K/mm3 (0.0-0.4); Eosinophils % 2.7 % (0.1-12.0); Hematocrit 45.1 % (37.0-47.0); Hemoglobin 14.5 g/dL (12.2-16.2); Lymphocytes # 2.7 K/mm3 (0.7-4.5); Lymphocytes % 36.5 % (10-50); Mean Corpuscular HGB Conc 32.2 g/dL (31.8-35.4); Mean Corpuscular Hemoglobin 29.1 pg (27.0-31.2); Mean Corpuscular Volume 90.1 fl (81-99); Mean Platelet Volume 10.8 fl (7.4-10.4); Neutrophils # 3.5 K/mm3 (1.8-7.8); Neutrophils % 47.1 % (37.0-80.0); Platelet Count 195 K/mm3 (142-424); Red Cell Distribution Width 13.6 % (11.5-17.5); White Blood Count 7.4 K/mm3 (4.8-10.8)
[2022-11-11 19:22] LABS: Alanine Aminotransferase 42 U/L (12-78); Albumin Level 4.6 g/dl (3.5-5.0); Albumin/Globulin Ratio 1.3 (1.1-1.8); Alkaline Phosphatase 59 U/L (38-126); Anion Gap 14.2 mEq/L (5-15); Aspartate Amino Transferase 42 U/L (14-36); Bilirubin,Total 0.6 mg/dl (0.2-1.3); Blood Urea Nitrogen 23 mg/dl (7-17); Calcium 9.7 mg/dl (8.4-10.2); Carbon Dioxide 30 mmol/L (22.0-30.0); Chloride 102 mmol/L (98-107); Estimated Glomerular Filt Rate 48 ml/min (>60); GFR (African American) 58 ML/MIN (>60); Globulin 3.5 g/dL (1.3-3.2); Glucose 97 mg/dl (74-100); Potassium 4.2 mmoL/L (3.5-5.1); Sodium 142 mmol/L (136-145); Total Protein,Serum 8.1 g/dl (6.3-8.2); Uric Acid 8.6 mg/dl (2.5-6.2)
[2022-11-11 19:51] LABS: Thyroid Stimulating Hormone 1.28 uIU/mL (0.465-4.68)
== END ==
PROVIDERS: PCP Family Medicine; Visit Provider Family Medicine
DX: I10 Essential (primary) hypertension (principal); M1A.9XX0 Chronic gout, unspecified, without tophus (tophi); R00.1 Bradycardia, unspecified
CPT/HCPCS: 80053; 84443; 84550; 85025

== ENCOUNTER 2022-11-18 08:45 | Day surgery (SDC) | payer MEDICARE, SELFPAY ==
[2022-11-12 10:20] VITALS: BMI 24.4
[2022-11-18] VITALS (11 sets, daily range): BP systolic 143–190; BP diastolic 59–87; PULSE 50–63; RESP 16–18; TEMP 36.1–36.2; O2SAT 97–100
== END 2022-11-18 13:19 | disposition home or self-care (01) ==
PROVIDERS: PCP Nurse Practitioner; Visit Provider Ophthalmology
DX: H25.812 Combined forms of age-related cataract, left eye (principal)
CPT/HCPCS: 66984; V2632

== ENCOUNTER → 2023-02-10 08:58 | Outpatient (POV) | payer MEDICARE, SELFPAY | PROVIDERS: PCP Family Medicine; Visit Provider Dermatology | DX: Z00.00 Encounter for general adult medical examination without abnormal findings (principal) ==

== ENCOUNTER 2023-06-13 13:41 | Emergency (ER) | payer MEDICARE, SELFPAY ==
[2023-06-13 14:00] VITALS: BP 114/68; PULSE 68; RESP 18; TEMP 36.6; O2SAT 99; BMI 24.6
--- NOTE | 2023-06-13 14:03 | XR_ITS ---
PROCEDURE INFORMATION: Exam: XR Right Shoulder Exam date and time: 06/13/2023 2:07 PM Age: 77 years old Clinical indication: Pain; Shoulder; Right TECHNIQUE: Imaging protocol: Radiologic exam of the right shoulder. Views: 2 or more views. COMPARISON: No relevant prior studies available. FINDINGS: Bones/joints: There are moderate degenerative changes of the acromioclavicular joint. No visible fracture or dislocation. No calcific tendinitis. Soft tissues: Normal. IMPRESSION: 1. No visible fracture or dislocation. 2. No calcific tendinitis.
--- NOTE | 2023-06-13 14:36 | ED_ITS ---
Discharge Plan Disposition Patient Disposition: Home, Self-Care Condition: Good Prescriptions Prescriptions: New prednisone 5 mg tablet 5 mg PO BID 5 Days Qty: 10 0RF No Action metoprolol tartrate 25 mg tablet See Rx Instructions .ROUTE .COMPLEX Qty: 45 1RF Dose Instruction: Take 1/2 Tablet by mouth once daily. Rx Instructions: Take 1/2 Tablet by mouth once daily. amlodipine 2.5 mg tablet See Rx Instructions .ROUTE .COMPLEX Qty: 90 1RF Dose Instruction: Take 1 Tablet by mouth once daily. Rx Instructions: Take 1 Tablet by mouth once daily. levothyroxine 75 mcg tablet See Rx Instructions .ROUTE .COMPLEX Qty: 90 1RF Dose Instruction: Take 1 Tablet by mouth once daily. Rx Instructions: Take 1 Tablet by mouth once daily. lisinopril-hydrochlorothiazide 20-12.5 mg tablet See Rx Instructions .ROUTE .COMPLEX Qty: 180 1RF Dose Instruction: Take 2 Tablets by mouth once daily for Hypertension. Rx Instructions: Take 2 Tablets by mouth once daily for Hypertension. simvastatin 20 mg tablet See Rx Instructions .ROUTE .COMPLEX Qty: 30 5RF Dose Instruction: Take 1 Tablet by mouth once daily. Rx Instructions: Take 1 Tablet by mouth once daily. meclizine 25 mg tablet See Rx Instructions .ROUTE .COMPLEX PRN (Reason: dizziness) Qty: 30 1RF Rx Instructions: Take 1 tablet by mouth three times a day As Needed for dizziness Referrals Follow up/Referrals: Uzair Miller MD [Primary Care Provider] - See instructions Activity Restrictions/Add. Instructions Additional Instructions/Restrictions: Ice with cold pack for 20 minutes remove may repeat for comfort every hour Ibuprofen every 6 hours as needed for pain or inflammation. If needs something more you can take Tylenol every 4 hours as needed as long as her primary care has told he was okayed for you to take both. Follow-up immediately if new or worsening symptoms or no noticeable improvement over the next 3-5 days. call pc for appointment Clinical Impressions Clinical Impression: Muscle strain Instructions Patient Instructions: DI for Muscle Strain Discharge ED Provider: Gene ([facility] HPI General Stated complaint: right shoulder pain Mode of Arrival: Ambulatory Source of Information: Patient Limitations: No Limitations Time Seen by Provider: 06/13/23 14:37 Description of Symptoms (Recalled from Triage Doc. by RN): PATIENT C/O RIGHT SHOULDER PAIN X 2 MONTHS. NO KNOWN INJURY HEENT Symptoms (Recalled from RN notes): No Resp Symptoms (Recalled from RN notes): No Skin Symptoms (Recalled from RN notes): No MS Symptoms (Recalled from RN notes): Yes Functional Status (Recalled from RN notes): WNL History of Present Illness Provider Complaint: 77 yr old female presents for rt shoulder pain for 2 months on and off. pt states it will improve some and the become sore again. no injury noted, Related Data Previous Rx's Medication Instructions Recorded amlodipine 2.5 mg tablet See Rx Instructions .Route 12/09/22 .COMPLEX #90 tabs metoprolol tartrate 25 mg tablet See Rx Instructions .Route 12/09/22 .COMPLEX #45 tabs levothyroxine 75 mcg tablet See Rx Instructions .Route 02/11/23 .COMPLEX #90 tabs lisinopril 20 See Rx Instructions .Route 05/05/23 mg-hydrochlorothiazide 12.5 mg .COMPLEX #180 tabs tablet simvastatin 20 mg tablet See Rx Instructions .Route 05/05/23 .COMPLEX #30 tabs meclizine 25 mg tablet See Rx Instructions .Route 05/08/23 .COMPLEX PRN dizziness #30 tabs prednisone 5 mg tablet 5 mg PO BID 5 days #10 tabs 06/13/23 Allergies Allergy/AdvReac Type Severity Reaction Status Date / Time No Known Allergies Allergy Verified 11/18/22 11:10 Worker's Comp Is this a Worker's Comp case?: No [facility] Disclaimer: The information contained in this section may have been updated after the patient was seen, as this information can be updated by other users. Medical History , DATA ANALYST REPORT WRITER) Macular degeneration Chronic gout Hypothyroidism Acquired hypothyroidism Left knee pain History of breast cancer Hyperlipidemia Hypertension Surgical History , DATA ANALYST REPORT WRITER) H/O: hysterectomy History of lumpectomy Family History , DATA ANALYST REPORT WRITER) Cancer Social History , DATA ANALYST REPORT WRITER) Smoking Status: Never smoker alcohol intake: never substance use type: denies use current occupational status: retired Travel in the last 8 weeks: None household members: spouse housing: house caffeine: No ROS Obtained: Yes All systems reviewed & no additional complaints except as documented Constitutional Constitutional: Reports system reviewed and no additional complaints, except as documented and Reports as per HPI Eyes Eyes: Reports system reviewed and no additional complaints, except as documented ENT Ears, Nose, Mouth, and Throat: Reports system reviewed and no additional complaints, except as documented Cardiovascular Cardiovascular: Reports system reviewed and no additional complaints, except as documented Respiratory Respiratory: Reports system reviewed and no additional complaints, except as documented Musculoskeletal Musculoskeletal: Reports system reviewed and no additional complaints, except as documented, Reports as per HPI and Reports myalgias Integumentary/Breasts Skin/Breast: Reports system reviewed and no additional complaints, except as documented Neurologic Neurologic: Reports system reviewed and no additional complaints, except as documented Hematologic/Lymphatic Henatologic/Lymphatic: Reports system reviewed and no additional complaints, except as documented Physical Exam General General appearance: alert and in no apparent distress Head Head exam: atraumatic Eye Eye exam: Present normal appearance and PERRL ENT ENT exam: Present normal exam, normal oropharynx, mucous membranes moist and TM's normal bilaterally Respiratory Respiratory exam: Present normal lung sounds bilaterally Cardiovascular Cardiovascular exam: Present regular rate and normal rhythm Back Exam Back 1 view image: 2 1. tenderness Neurological Exam Neurological exam: Present alert and oriented X3 Skin Skin exam: Present warm and intact Medical Decision Making Medical Records Medical records reviewed: Yes I reviewed the patient's medical records. David Inquiry Pt receiving controlled substance: No David was queried for this patient: No Vital Signs: 06/13/23 14:00 Temperature 97.8 F Temperature Source Oral Pulse Rate [Left Brachial] 68 Respiratory Rate 18 Blood Pressure [Left Arm] 114/68 Blood Pressure Mean [Left Arm] 83 Blood Pressure Source [Left Arm] Automatic Cuff Blood Pressure Position [Left Arm] Sitting 02 Sat by Pulse Oximetry 99 Oxygen Delivery Method Room Air Orders (Tests/Meds): ORDERS Category Date Time Status XR shoulder RT min 2V Stat Exams 06/13/23 14:03 Taken
[2023-06-13 14:47] VITALS: BP 114/68; PULSE 68; RESP 18; TEMP 36.6; O2SAT 99
== END 2023-06-13 14:48 | disposition home or self-care (01) ==
PROVIDERS: Emergency Provider Nurse Practitioner Family; PCP Family Medicine
DX: M25.511 Pain in right shoulder (principal); E03.9 Hypothyroidism, unspecified; E78.5 Hyperlipidemia, unspecified; I10 Essential (primary) hypertension; M10.9 Gout, unspecified; Z85.3 Personal history of malignant neoplasm of breast
CPT/HCPCS: 73030; 99204; 99212; G0463

== ENCOUNTER 2023-10-08 15:17 | Outpatient (CLI) | payer MEDICARE, SELFPAY ==
[2023-10-08 15:44] LABS: Blood Urea Nitrogen 18 mg/dl (7-17); Estimated Glomerular Filt Rate 43 ml/min (>60); GFR (African American) 52 ML/MIN (>60)
== END 2023-10-08 23:59 | disposition home or self-care (01) ==
LOC: LAB 15:19
PROVIDERS: PCP Family Medicine; Visit Provider Family Medicine
DX: M54.2 Cervicalgia (principal)
CPT/HCPCS: 36415; 82565; 84520

== ENCOUNTER 2023-10-09 13:09 | Outpatient (CLI) | payer MEDICARE, SELFPAY ==
--- NOTE | 2023-10-09 13:09 | MR_ITS ---
FINAL REPORT CLINICAL HISTORY: neck pain with RUE COMPARISON: None FINDINGS: Multiplanar MR imaging of the cervical spine was performed without and with contrast. There is motion on many sequences that somewhat limits overall image quality. On the sagittal T2-weighted images, disc degeneration is seen throughout levels. There is mild anterolisthesis of C4 on C5. There is no evidence of fracture. No bony mass is identified. The cervical spinal cord has an unremarkable appearance without evidence of mass, edema or syrinx. C2-3: An annular bulge is present with uncovertebral osteophytes and severe right neural foraminal narrowing. C3-4: Disc osteophyte complex is present with severe bilateral neural foraminal narrowing. C4-5: An annular bulge is present with moderate right and mild left neural foraminal narrowing. C5-6: Disc osteophyte complex is present with a right foraminal disc protrusion, probable right C6 nerve root impingement, and moderate bilateral neural foraminal narrowing. There is mild canal stenosis with an AP canal diameter of 9 mm. C6-7: Disc osteophyte complex is present with a right foraminal disc protrusion, right C7 nerve root impingement, and severe right, moderate left neural foraminal narrowing. C7-T1: Disc osteophyte complex is present with severe right and moderate left neural foraminal narrowing. T1-2: Disc osteophyte complex is present with mild bilateral neural foraminal narrowing. T2-3: An annular bulge is present with mild bilateral neural foraminal narrowing. No abnormal contrast enhancement is seen on the postcontrast images. IMPRESSION: Multilevel degenerative disc disease as described, most severe at the C5-6 and C6-7 levels. Reviewed, Interpreted and Dictated by Miah Emanuel III, MD Transcribed by Pauly Lara Authenticated and [facility]
[2023-10-09] MEDS: SODIUM CHLORIDE 0.9% 10ML SYR (RAD ONLY) 10 ML IV (14:15)
[2023-10-09] MEDS: GADOTERIDOL INJ 20ML SYRINGE 12 ML IV (14:15)
== END 2023-10-09 23:59 | disposition home or self-care (01) ==
LOC: RAD 13:09
PROVIDERS: PCP Family Medicine; Visit Provider Family Medicine
DX: M54.2 Cervicalgia (principal)
CPT/HCPCS: 72156; A9576

== ENCOUNTER 2023-11-23 09:15 | Emergency (ER) | payer MEDICARE, SELFPAY ==
[2023-11-23 09:15] VITALS: BP 120/75; PULSE 67; RESP 14; TEMP 36.6; O2SAT 97; BMI 24.4
--- NOTE | 2023-11-23 09:18 | CT_ITS ---
FINAL REPORT TECHNIQUE: multiple axial CT images were performed from the foramen magnum to the vertex without enhancement. This study was performed with techniques to keep radiation doses as low as reasonably achievable (ALARA). Individualized dose reduction techniques using automated exposure control or adjustment of mA and/or kV according to the patient's size were employed. CLINICAL HISTORY: syncope FINDINGS: The ventricles are enlarged. There is diffuse atrophy. There is extensive periventricular white matter change likely related to small vessel disease. There is no evidence of hemorrhage. No masses are identified. No extra-axial fluid is seen. The sinuses are normal. IMPRESSION: Atrophy and chronic changes without acute process. Reviewed, Interpreted and Dictated by Himanshu Barillas MD Transcribed by Leydi Pace Authenticated and . [facility]
--- NOTE | 2023-11-23 09:20 | XR_ITS ---
FINAL REPORT TECHNIQUE: Single view chest CLINICAL HISTORY: syncope FINDINGS: A single view of the chest was obtained. The heart and mediastinum are within normal limits. There is a calcified granuloma in the periphery of the right lung. The lungs are otherwise clear. There is no pneumothorax. Osseous structures are unremarkable. IMPRESSION: No acute cardiopulmonary process. Reviewed, Interpreted and Dictated by Himanshu Barillas MD Transcribed by Leydi Pace Authenticated and [facility]
--- NOTE | 2023-11-23 09:24 | HMH.EDGENADL ---
Discharge Plan Disposition Patient Disposition: Home, Self-Care Chief Complaint: Syncope Prescriptions Prescriptions: No Action gabapentin 100 mg capsule 100 mg PO BID Qty: 60 3RF cyclobenzaprine 10 mg tablet 10 mg PO TID PRN (Reason: muscle spasm) Qty: 60 1RF lisinopril-hydrochlorothiazide 20-12.5 mg tablet See Rx Instructions .ROUTE .COMPLEX Qty: 180 1RF Dose Instruction: Take 2 Tablets by mouth once daily for Hypertension. Rx Instructions: Take 2 Tablets by mouth once daily for Hypertension. simvastatin 20 mg tablet See Rx Instructions .ROUTE .COMPLEX Qty: 30 5RF Dose Instruction: Take 1 Tablet by mouth once daily. Rx Instructions: Take 1 Tablet by mouth once daily. metoprolol tartrate 25 mg tablet See Rx Instructions .ROUTE .COMPLEX Qty: 45 1RF Dose Instruction: Take 1/2 Tablet by mouth once daily. Rx Instructions: Take 1/2 Tablet by mouth once daily. amlodipine 2.5 mg tablet See Rx Instructions .ROUTE .COMPLEX Qty: 90 1RF Dose Instruction: Take 1 Tablet by mouth once daily. Rx Instructions: Take 1 Tablet by mouth once daily. levothyroxine 75 mcg tablet 75 mcg PO DAILY Qty: 90 0RF meclizine 25 mg tablet See Rx Instructions .ROUTE .COMPLEX Qty: 30 1RF Dose Instruction: TAKE 1 TABLET BY MOUTH 3 TIMES DAILY NEEDED FOR DIZZINESS Rx Instructions: TAKE 1 TABLET BY MOUTH 3 TIMES DAILY NEEDED FOR DIZZINESS Activity Restrictions/Add. Instructions Additional Instructions/Restrictions: At this time it was felt you are safe to be discharged home. If new or worsening symptoms please do not hesitate to return the emergency department. Please pickle sorter your blood thinner (Eliquis) that cardiology prescribed you from the pharmacy. Please come to cardiology clinic tomorrow as discussed. Clinical Impressions Clinical Impression: Atrial flutter, Syncope Instructions Patient Instructions: DI for Syncope in Adults (Fainting), DI for Syncope in Children (Fainting) Print Language Print Language: Congolese Discharge ED Provider: Cristian Tubbs General Adult HPI General Chief complaint: Syncope Stated complaint: syncope Time Seen by Provider: 11/23/23 09:18 History of Present Illness HPI narrative: Patient is 78-year-old female with past medical history of cervical root impingement, previous syncope, hypertension on medications who presents emergency department for evaluation of syncope after a rapid response was called. Patient was in rehab for her cervical neck pain when she had an episode of syncope while sitting in a chair, not exercising. No trauma. Patient states that she has had syncope before related to her blood pressure but has not had this happen in 2 or 3 years. No anticoagulants. No seizure-like activity prior to arrival. No other acute complaints at this time. Unfortunately patient did lose her sister this weekend. Related Data Previous Rx's ?Medication ?Instructions ?Recorded lisinopril 20 See Rx Instructions .Route 05/05/23 mg-hydrochlorothiazide 12.5 mg .COMPLEX #180 tabs tablet simvastatin 20 mg tablet See Rx Instructions .Route 05/05/23 .COMPLEX #30 tabs cyclobenzaprine 10 mg tablet 10 mg PO TID PRN muscle spasm #60 06/18/23 tabs amlodipine 2.5 mg tablet See Rx Instructions .Route 07/08/23 .COMPLEX #90 tabs levothyroxine 75 mcg tablet 75 mcg PO DAILY thyroid #90 tabs 07/08/23 metoprolol tartrate 25 mg tablet See Rx Instructions .Route 07/08/23 .COMPLEX #45 tabs gabapentin 100 mg capsule 100 mg PO BID #60 caps 09/23/23 meclizine 25 mg tablet See Rx Instructions .Route 10/20/23 .COMPLEX #30 tabs Allergies Allergy/AdvReac Type Severity Reaction Status Date / Time No Known Allergies Allergy Verified 11/23/23 09:38 [facility] Disclaimer: The information contained in this section may have been updated after the patient was seen, as this information can be updated by
--- NOTE | 2023-11-23 09:30 | PC.NURSE ---
patient was here for a rehab when she was witnessed to become unresponsive. Upon assessment physical therapist deemed appropriate to notify rapid response which was called at 0901. ED provider and SOFTWARE ENGINEER BACKEND arrived to bedside and transported patient to the ED. Family notified by ED staff.
[2023-11-23 09:36] LABS: Albumin Level 4.1 g/dl (3.5-5.0); Basophils # 0.1 K/mm3 (0-0.2); Basophils % 1.7 % (0.1-2.0); Chloride 108 mmol/L (98-107); Eosinophils # 0.2 K/mm3 (0.0-0.4); Hematocrit 44.1 % (37.0-47.0); Lymphocytes # 2.6 K/mm3 (0.7-4.5); Mean Corpuscular HGB Conc 31.9 g/dL (31.8-35.4); Mean Corpuscular Hemoglobin 28.9 pg (27.0-31.2); Mean Corpuscular Volume 90.8 fl (81-99); Mean Platelet Volume 9.6 fl (7.4-10.4); Monocytes # 0.7 K/mm3 (0.1-1.0); Monocytes % 11.4 % (1.7-9.3); Neutrophils # 2.6 K/mm3 (1.8-7.8); Platelet Count 215 K/mm3 (142-424); Potassium 3.5 mmoL/L (3.5-5.1); Red Blood Count 4.85 M/mm3 (4.20-5.40); Red Cell Distribution Width 13.6 % (11.5-17.5); Sodium 138 mmol/L (136-145); White Blood Count 6.1 K/mm3 (4.8-10.8)
[2023-11-23 09:39] LABS: Alanine Aminotransferase 38 U/L (12-78); Albumin/Globulin Ratio 1.3 (1.1-1.8); Alkaline Phosphatase 52 U/L (38-126); Anion Gap 10.5 mEq/L (5-15); Aspartate Amino Transferase 41 U/L (14-36); Bilirubin,Total 0.6 mg/dl (0.2-1.3); Blood Urea Nitrogen 14 mg/dl (7-17); Calcium 8.8 mg/dl (8.4-10.2); Carbon Dioxide 23 mmol/L (22.0-30.0); Creatinine Clearance Estimated 41 mL/min (50-200); Estimated Glomerular Filt Rate 53 ml/min (>60); GFR (African American) 65 ML/MIN (>60); Globulin 3.1 g/dL (1.3-3.2); Glucose 151 mg/dl (74-100); Magnesium 1.9 mg/dl (1.6-2.3); Total Protein,Serum 7.2 g/dl (6.3-8.2)
--- NOTE | 2023-11-23 09:42 | PC.NURSE ---
spoke with son Anthony per patient's request to update him on what happened
[2023-11-23 10:03] LABS: Troponin I < 0.01 ng/ml (0.00-0.034)
[2023-11-23 10:28] LABS: NT Pro Brain Natriuretic Pep. 504 pg/mL (0-450)
[2023-11-23 10:35] LABS: Free T4 (Free Thyroxine) 1.34 ng/dl (0.78-2.19)
--- NOTE | 2023-11-23 10:39 | PC.NURSE ---
assisted pt to the restroom and back to her room. pt tolerated well. family at bedside. call light within reach. bed in lowest position.
[2023-11-23 10:42] LABS: Microscopic, Urine URINE MICROSCOPIC (MICROSCOPIC)
[2023-11-23 11:05] LABS: Appearance,Urine CLEAR (Clear); Bilirubin,Urine Negative (Negative); Blood, Urine Negative (Negative); Color,Urine YELLOW (Yellow); Glucose,Urine (UA) Negative (Negative); Ketones,Urine Negative (Negative); Leukocyte Esterase,Urine TRACE (Negative); Nitrate,Urine Negative (Negative); Protein,Urine Negative (Negative); Specific Gravity, Urine 1.015 (1.005-1.030); Urobilinogen,Urine 0.2 EU/dl (0.2)
[2023-11-23 11:14] LABS: Bacteria,Urine Trace /lpf; RBC,Urine Occasional #/hpf (0-3)
[2023-11-23 11:24] VITALS: BP 138/91; PULSE 81; O2SAT 97
[2023-11-23 11:30] VITALS: BP 151/90; PULSE 77; O2SAT 94
--- NOTE | 2023-11-23 11:35 | PC.NURSE ---
pt resting in bed. updated on plan of care. bed in lowest position. call light within reach. no questions or concerns voiced.
[2023-11-23 11:38] VITALS: BP 140/96; PULSE 75; O2SAT 95
--- NOTE | 2023-11-23 11:45 | PC.NURSE ---
attempted to call cardiology with no answer. will try again shortly. er md aware.
--- NOTE | 2023-11-23 11:54 | PC.NURSE ---
spoke with cardiology and they stated they would be down shortly to see the pt.
--- NOTE | 2023-11-23 12:09 | PC.NURSE ---
updated pt on plan of care. waiting on cards to see pt. pt verbalized understanding. call light within reach. bed in lowest position.
--- NOTE | 2023-11-23 12:11 | PC.NURSE ---
cardiology at bedside
[2023-11-23 12:30] VITALS: BP 135/88; PULSE 71; RESP 15; O2SAT 99
[2023-11-23 12:37] VITALS: BP 140/90; PULSE 71; RESP 18; TEMP 36.6; O2SAT 99
--- NOTE | 2023-11-23 12:41 | EXP.CARD.CON ---
History of Present Illness History of Present Illness Consult date: 11/23/23 Requesting physician: Cristian Tubbs Chief complaint: syncope History of present illness: 78 year old femal with past medical hx of aflutter, does not see a mud grinder and is not on oac, previous syncope htn and hld presented to ER with complaint of syncope. Patient was in rehab for her cervical neck pain when she had an episode of syncope while sitting in a chair, not exercising. No trauma. Patient states that she has had syncope before related to her blood pressure but has not had this happen in 2 or 3 years. No anticoagulants. No seizure-like activity prior to arrival. No other acute complaints at this time. Unfortunately patient did lose her sister this weekend and she is planning her currently. Upon arrival to ED EKG shows afib/flutter rate of 70. Labs as follow: WBC 6.1, hemoglobin 14, hematocrit 44.1, sodium 138, potassium 3.5, creatinine 1, troponin negative, proBNP 504, TSH 13 but free T4 1.34. Chest x-ray negative for acute cardiopulmonary process. CT head shows atrophy with chronic changes without acute process noted. Cardiology was asked to evaluate further for syncope. [facility] Disclaimer: The information contained in this section may have been updated after the patient was seen, as this information can be updated by other users. Medical History Macular degeneration Chronic gout Hypothyroidism Acquired hypothyroidism Left knee pain History of breast cancer Hyperlipidemia Hypertension Surgical History H/O: hysterectomy History of lumpectomy Family History Other Cancer Social History Smoking Status: Never smoker alcohol intake: never substance use type: denies use current occupational status: retired Travel in the last 8 weeks: None household members: spouse housing: house caffeine: No Review of Systems Review of Systems Review of systems:: pertinent systems reviewed and negative unless documented below Exam Data for Last 24 hours Vital signs and Labs for Last 24 Hours: Temp Pulse Resp BP Pulse Ox O2 Del Method 97.8 F 71 18 140/90 95 Room Air 11/23/23 12:37 11/23/23 12:37 11/23/23 12:37 11/23/23 12:37 11/23/23 11:38 11/23/23 12:37 Laboratory Results - last 24 hr 11/23/23 09:15: WBC 6.1, RBC 4.85, Hgb 14.0, Hct 44.1, MCV 90.8, MCH 28.9, MCHC 31.9, RDW 13.6, Plt Count 215, MPV 9.6, Neut % (Auto) 42.0, Lymph % (Auto) 42.0, Page % (Auto) 11.4 H, Eos % (Auto) 3.0, Baso % (Auto) 1.7, Neut # (Auto) 2.6, Lymph # (Auto) 2.6, Page # (Auto) 0.7, Eos # (Auto) 0.2, Baso # (Auto) 0.1, Sodium 138, Potassium 3.5, Chloride 108 H, Carbon Dioxide 23, Anion Gap 10.5, BUN 14, Creatinine 1.00, Estimated Creat Clear 41, Estimated GFR 53 L, Est GFR ( Amer) 65, Glucose 151 H, Calcium 8.8, Magnesium 1.9, Total Bilirubin 0.6, AST 41 H, ALT 38, Alkaline Phosphatase 52, Troponin I < 0.01, NT-Pro-B Natriuret Pep 504 H, Total Protein 7.2, Albumin 4.1, Globulin 3.1, Albumin/Globulin Ratio 1.3, TSH 13.00 H, Free T4 1.34 11/23/23 10:35: Urine Color Yellow, Urine Appearance Clear, Urine pH 7.0, Ur Specific [place] 1.015, Urine Protein Negative, Urine Glucose (UA) Negative, Urine Ketones Negative, Urine Blood Negative, Urine Nitrate Negative, Urine Bilirubin Negative, Urine Urobilinogen 0.2, Ur Leukocyte Esterase Trace, Urine RBC Occasional, Urine WBC 3-5, Ur Squamous Epith Cells 3-5, Urine Bacteria Trace I & O for Last 24 hours: Intake & Output 11/20/23 11/21/23 11/22/23 11/23/23 23:59 23:59 23:59 23:59 Weight 125 lb Constitutional Constitutional: no acute distress *Routine Respiratory Exam Respiratory: Present CTA bilaterally and symmetric chest movement *Routine Cardiovascular Exam Cardiovascu
== END 2023-11-23 12:42 | disposition home or self-care (01) ==
PROVIDERS: Emergency Provider Emergency Medicine; PCP Family Medicine
DX: R55 Syncope and collapse (principal); I48.92 Unspecified atrial flutter; I10 Essential (primary) hypertension; E78.5 Hyperlipidemia, unspecified; E03.9 Hypothyroidism, unspecified
CPT/HCPCS: 70450; 71045; 80050; 80053; 81001; 83735; 83880; 84439; 84443; 84484; 85025; 93225; 93227; 99285

== ENCOUNTER 2023-12-03 09:10 | Outpatient (CLI) | payer MEDICARE, SELFPAY ==
--- NOTE | 2023-12-03 09:15 | CA_ITS ---
APPROVED REPORT EXAM: Comprehensive 2D, Doppler, and color-flow Echocardiogram Aquaculture Farmer: Judie Loo RDCS Ht: 5 ft 0 in Wt: 126lbs BSA: 1.53 BP: 128/72 mmHg Indications: SYNCOPE,SOA,ABN EKG,HTN,AFLUTTER,HLP 2D Dimensions Left Atrium 3.77 cm F: 2.7 - 3.8 EF AP4 50.20 % LVOT 1.90 cm (M/F) 1.5-2.5 GL Strain -19.0 % M-Mode Dimensions RVDd 1.85 cm (0.9-2.6) LVDd 4.23 cm (3.5-5.7) Ao Diam 2.73 cm (2.0-3.7) LVDs 2.44 cm (3.5-5.7) IVSd 1.03 cm (0.6-1.1) PWd 0.63 cm (0.6-1.1) EF (Teich) 73.70% FS 42.30% EDV (Teich) 79.90 mL TAPSE 2.20 (<1.7) ESV (Teich) 21.00 mL LV Diastology E Decel Time 167 (160-240 msec) E/A Ratio 1.2 MED E' 5.7 (>= 7 cm/sec) E'/MED E' Ratio 15.37 (<= 14) LAT E' 8.4 (>= 10 cm/sec) E/LAT E' Ratio 10.43 (<= 14) Mitral Valve MV E Max Jose. 88.0 (40-130 cm/s) MV A Velocity 72.0 (40-130 cm/s) E/A Ratio 1.22 MV Decel. Time 167 (160-240 ms) Tricuspid Valve TR P. Velocity 205.00 cm/s RAP Estimate 10.00 mmHg RVSP 26.90 mmHg Left Ventricle The left ventricle is normal size. The left ventricular systolic function is normal. The left ventricular ejection fraction is within the normal range. There is increased LV wall thickness. There is normal LV segmental wall motion. Transmitral Doppler flow pattern suggests impaired LV relaxation. LVEF is 55%. Right Ventricle The right ventricle is normal size. The right ventricular systolic function is normal. Atria The left atrium is mildly dilated. The right atrium size is normal. There is no Doppler evidence of interatrial shunt. The aortic valve Aortic Valve Is mildly thickened. There is no aortic valvular stenosis. Trace aortic regurgitation is present. Mitral Valve The mitral valve is normal in structure. No evidence of mitral valve stenosis. Mild mitral regurgitation. Tricuspid Valve The tricuspid valve leaflets are thin and pliable. Mild tricuspid regurgitation. RVSP is 20-25 mmHg. Pulmonic Valve The pulmonary valve is normal in structure. Trace pulmonic regurgitation. Great Vessels The aortic root is normal in size. The ascending aorta is not well-visualized. IVC is normal in size and collapses >50% with inspiration. Pericardium There is no pericardial effusion. Other Information Study Quality: Fair Conclusion Normal biventricular systolic function. Mild LA dilation. Mild MR, mild TR. Electronically signed by : Germania Shook MD 12/08/2023 14:08:02
--- NOTE | 2023-12-03 09:55 | NM_ITS ---
APPROVED REPORT Exam: Nuclear Stress Test Indication: soa...syncope Patient Location: Outpatient Stress Tech: Herminia Berry [place] Tech:Jenna MontoyaRAJI RT(R)(N) Ht: 5 ft 0 in Wt: 126 lbs Bra Size: 36c HR: 71 bpm BP: 173/70 mmHg BSA: 1.53 m2 TID: 0.95 History: soa...syncope Procedure: Patient received 0.4 mg of intravenous Lexiscan, resting heart rate 71 bpm, resting blood pressure 173/70 mmHg, with Lexiscan maximum heart rate achieved was 91 bpm which is 85 % of the maximum predicted heart rate and blood pressure was 173/70 mmHg. With Lexiscan, patient denied any complaint of chest pain. Cardiac Stress and Resting SPECT Images: Cardiac Stress and Resting SPECT images were obtained using technetium 99m Myoview 32.6 mCi stress and 10.73 mCi at rest. Resting and stress imaging in supine and prone positions demonstrate a small sized, moderate, reversible perfusion defect in the distal anterior LV wall. Gated imaging demonstrates normal global and regional LV systolic function. LVEF is calculated at 69%. Conclusion: Small sized, moderate, reversible perfusion defect in the distal anterior LV wall. Findings are suggestive of reversible ischemia. Gated imaging demonstrates normal global and regional LV systolic function. LVEF is calculated at 69%. Electronically signed by : Germania Shook MD 12/07/2023 00:06:57
--- NOTE | 2023-12-03 09:55 | CA_ITS ---
APPROVED REPORT Exam: Pharmacologic Technologist: Herminia Estrella, Ht: 5 ft 0 in Wt: 125 lbs BSA: 1.53 m2 HR: 74 bpm BP: 173/70 mmHg Medical History Medications: Amlodipine,,,,, Levothyroxine,,,,, Metoprolol,,,,, Simvastatin,,,,, XaRELTO,,,,, Meclizine,,,,, Lisinopril HCTZ,,,,, Stress Test Details Test: LEXISCAN Reason for pharmacologic stress test: changed from exercise stress test due to inability to reach target heart rate. HR Resting HR: 71 bpm Max Heart Rate (APMHR): 141 bpm Max HR Achieved: 91 bpm Target HR (85% APMHR): 120 bpm % of APMHR: 65 Recovery HR: 78 bpm BP Resting BP: 173.0/70.0 mmHg Max BP: 173.0/70.0 mmHg Recovery BP: 156.0/64.0 mmHg ECG Resting ECG: Ectopic atrial rhythm, frequent PACs, non-specific ST abns Stress ECG: No significant ST changes Arrhythmia: PACs Clinical Exercise duration: 04:08 min Highest Stage Achieved: Exercise capacity: 1.0 METs Stress ECG Conclusion Switched from exercise due to inadequate HR response on Metoprolol. Symptoms: Mild stomach discomfort. No CP. Arrhythmias/Ectopy: Intermittent periods of NSR & ectopic atrial rhythm. Frequent PACs. ST-T Changes: No significant ST changes Conclusion: Nondiagnostic Lexiscan stress test due to baseline abnormalities. Myoview images reported separately. Test Summary REST 01:11 . . 71 . 173/ 70 . . Stage 1 01:00 . . 77 . . . . Stage 2 01:00 . . 82 . . . . Stage 3 01:00 . . 79 . 157/ 69 . . Stage 4 01:00 . . 77 . 160/ 67 . . Stage 4 01:08 . . 78 . 160/ 67 . Stop exercise at 04:08 RECOVERY 01:00 . . 82 . 146/ 68 . . RECOVERY 02:00 . . 80 . 163/ 64 . . RECOVERY 03:00 . . 69 . 163/ 64 . . RECOVERY 03:20 . . 70 . 156/ 64 . . Electronically signed by : Germania Shook MD 12/07/2023 00:05:39
[2023-12-03] MEDS: REGADENOSON 0.4MG/5ML SYRINGE 0.4 MG IV (12:52)
[2023-12-03] MEDS: ISOTOPE MYOVIEW (PER STUDY) 1 DOSE IV (12:53)
[2023-12-03] MEDS: SODIUM CHLORIDE 0.9% 10ML SYR (RAD ONLY) 10 ML IV ×2 (12:53)
== END 2023-12-03 23:59 | disposition home or self-care (01) ==
LOC: RT 09:11
PROVIDERS: PCP Family Medicine; Visit Provider Physician Assistant
DX: R55 Syncope and collapse (principal); I48.92 Unspecified atrial flutter; R94.31 Abnormal electrocardiogram [ECG] [EKG]; I10 Essential (primary) hypertension; E78.5 Hyperlipidemia, unspecified
CPT/HCPCS: 78452; 93017; 93018; 93306; A9502; J2785

== ENCOUNTER 2023-12-23 11:00 | Outpatient (RCR) | payer MEDICARE, SELFPAY | END 2023-12-23 11:05 | disposition home or self-care (01) | LOC: PT 11:00 | PROVIDERS: Visit Provider Neurological Surgery | DX: M54.2 Cervicalgia (principal); M79.621 Pain in right upper arm | CPT/HCPCS: 97010; 97012; 97035; 97110; 97140; 97163; 97164 ==

== ENCOUNTER 2024-07-06 12:08 | Outpatient (CLI) | payer MEDICARE, SELFPAY ==
[2024-07-06 18:22] LABS: Creatinine,Urine Random 130 mg/dL (Not Estab.)
[2024-07-06 18:46] LABS: Basophils % 0.6 % (0.1-2.0); Eosinophils # 0.1 K/mm3 (0.0-0.4); Eosinophils % 2.4 % (0.1-12.0); Hematocrit 40.6 % (37.0-47.0); Hemoglobin 13.5 g/dL (12.2-16.2); Lymphocytes # 1.6 K/mm3 (0.7-4.5); Lymphocytes % 29.8 % (10-50); Mean Corpuscular HGB Conc 33.3 g/dL (31.8-35.4); Mean Corpuscular Hemoglobin 28.9 pg (27.0-31.2); Mean Corpuscular Volume 86.9 fl (81-99); Mean Platelet Volume 11.5 fl (7.4-10.4); Monocytes # 0.7 K/mm3 (0.1-1.0); Monocytes % 12.5 % (1.7-9.3); Neutrophils % 54.7 % (37.0-80.0); Nucleated Red Blood Cells # 0 10^3/uL; Nucleated Red Blood Cells % 0 %; Platelet Count 162 K/mm3 (142-424); Red Blood Count 4.67 M/mm3 (4.20-5.40); Red Cell Distribution Width 13.7 % (11.5-17.5); White Blood Count 5.4 K/mm3 (4.8-10.8)
[2024-07-06 18:57] LABS: Alanine Aminotransferase 36 U/L (12-78); Albumin Level 4.1 g/dl (3.5-5.0); Alkaline Phosphatase 56 U/L (38-126); Anion Gap 16.8 mEq/L (5-15); Aspartate Amino Transferase 35 U/L (14-36); Bilirubin,Direct 0.3 mg/dl (0.0-0.4); Bilirubin,Indirect 0.3 mg/dL (0.0-0.9); Bilirubin,Total 0.6 mg/dl (0.2-1.3); Bilirubin,Unconjugated 0.3 mg/dL (0.0-1.1); Blood Urea Nitrogen 21 mg/dl (7-17); Calcium 9.3 mg/dl (8.4-10.2); Carbon Dioxide 24 mmol/L (22.0-30.0); Chloride 103 mmol/L (98-107); Chol/HDL Ratio 5.5 (1-3.5); Cholesterol 192 mg/dl (140-200); Estimated Glomerular Filt Rate 43 ml/min (>60); GFR (African American) 52 ML/MIN (>60); Glucose 117 mg/dl (74-100); HDL Cholesterol 35 mg/dl (40-60); Magnesium 2.1 mg/dl (1.6-2.3); Potassium 3.8 mmoL/L (3.5-5.1); Sodium 140 mmol/L (136-145); Total Protein,Serum 7.3 g/dl (6.3-8.2); Triglycerides 293 mg/dl (30-150); VLDL Cholesterol 59 mg/dL (0-40)
[2024-07-06 19:07] LABS: Direct LDL Cholesterol 70.65 mg/dL (100-129)
[2024-07-06 19:15] LABS: Free T4 (Free Thyroxine) 1.57 ng/dl (0.78-2.19)
[2024-07-06 19:27] LABS: Thyroid Stimulating Hormone 1.76 uIU/mL (0.465-4.68)
[2024-07-06 19:46] LABS: Microalbumin/Creatinine Ratio 6.8
== END 2024-07-06 23:59 | disposition home or self-care (01) ==
LOC: LAB.DROPOF 07-07 11:06
PROVIDERS: Nurse Practitioner; PCP Nurse Practitioner; Visit Provider Nurse Practitioner
DX: R55 Syncope and collapse (principal); E03.9 Hypothyroidism, unspecified; E78.5 Hyperlipidemia, unspecified; I10 Essential (primary) hypertension
CPT/HCPCS: 80048; 80061; 80076; 82043; 82570; 83735; 84439; 84443; 85025

== ENCOUNTER 2025-02-06 16:42 | Outpatient (CLI) | payer MEDICARE, SELFPAY ==
--- OUTSIDE RECORDS SUMMARY | 2017-09-08 09:56 | XMS_ITS | Encounter Summary ---
Author Organization [place] [address] Care Team Providers Care Preparatory Technician Name Role Phone Maria Victoria Miller Primary Care Provider [phone] Encounter Details Date Type Department Care Team (Late st Contact Info) Description 09/08/2017 10:56 AM EDT Hospital Encounter [facility] [address] [id number] Uzair Cochran MD [address] [place] [address] Low back pain Social History Tobacco Use Types Packs/Day Years Used Date Smoking Tobacco: Never Alcohol Use Standard Drinks/Week Comments No 0 (1 standard drink = 0.6 oz pur e alcohol) Comments No Sex and Gender Information Value Date Recorded Sex Assigned at Not on file Legal Sex Female 6:47 AM EDT Gender Identity Not on file Sexual Orientation Not on file COVID-19 Exposure Response Date Recorded In the last month, have you been in contact with someone who was confirmed or suspected to have Coronavirus / COVID-19? No / Unsure 11/28/2019 11:08 AM EDT documented as of this encounter Plan of Treatment Scheduled Orders Name Type Priority Associated Diagnoses Orde r Schedule CREATININE Lab Routine Low back pain ONCE for 1 Occurrences starting 09/08/2017 until 10/13/2017 documented as of this encounter Visit Diagnoses Diagnosis Low back pain Lumbago documented in this encounter Care Teams Preparatory Technician Relationship Specialty Start Date End Date Maria Victoria Miller [address] [place] [address] PCP - General 09/16/10 documented as of this encounter
[2025-02-06 17:00] LABS: Hematocrit 41.0 % (37.0-47.0); Hemoglobin 13.5 g/dL (12.2-16.2); Immature Granulocytes % 0.2 %; Mean Corpuscular HGB Conc 32.9 g/dL (31.8-35.4); Mean Corpuscular Hemoglobin 28.5 pg (27.0-31.2); Mean Corpuscular Volume 86.5 fl (81-99); Nucleated Red Blood Cells % 0 %; Platelet Count 143 K/mm3 (142-424); Red Blood Count 4.74 M/mm3 (4.20-5.40); Red Cell Distribution Width-SD 39.3 fL; White Blood Count 4.8 K/mm3 (4.8-10.8)
[2025-02-06 18:33] LABS: Alanine Aminotransferase 49 U/L (12-78); Albumin Level 4.2 g/dl (3.5-5.0); Albumin/Globulin Ratio 1.2 (1.1-1.8); Alkaline Phosphatase 63 U/L (38-126); Anion Gap 11.3 mEq/L (5-15); Aspartate Amino Transferase 39 U/L (14-36); Bilirubin,Total 0.6 mg/dl (0.2-1.3); Blood Urea Nitrogen 20 mg/dl (7-17); Calcium 9.8 mg/dl (8.4-10.2); Carbon Dioxide 28 mmol/L (22.0-30.0); Chloride 104 mmol/L (98-107); Cholesterol 151 mg/dl (140-200); Creatinine,Serum 1.10 mg/dl (0.52-1.04); Estimated Glomerular Filt Rate 48 ml/min (>60); GFR (African American) 58 ML/MIN (>60); Globulin 3.4 g/dL (1.3-3.2); Glucose 119 mg/dl (74-100); HDL Cholesterol 33 mg/dl (40-60); Potassium 4.3 mmoL/L (3.5-5.1); Sodium 139 mmol/L (136-145); Total Protein,Serum 7.6 g/dl (6.3-8.2); Triglycerides 218 mg/dl (30-150)
[2025-02-06 18:45] LABS: Free T4 (Free Thyroxine) 1.57 ng/dl (0.78-2.19)
[2025-02-06 19:03] LABS: Thyroid Stimulating Hormone 0.06 uIU/mL (0.465-4.68)
--- OUTSIDE RECORDS SUMMARY | 2025-02-07 16:45 | XMS_ITS | Clinical Summary ---
Author Organization [facility] Address [address] [place] [address] Phone Care Team Providers Care Sfdc Solution Architect Name Role Phone Maria Victoria [place] Primary Care Provider [phone] Allergies No known active allergies Medications metoprolol (LOPRESSOR) 25 mg Oral Tablet Take by mouth 2 times daily. Active lisinopril-hydro chlorothiazide (PRINZIDE;ZESTOR ETIC) 20-12.5 mg Oral Tablet Take 1 Tab by mouth 2 times daily. Active aspirin 81 mg Oral Tablet, Delayed Release (E.C.) Take by mouth daily. Active levothyroxine (SYNTHROID) 88 mcg Oral Tablet Take 88 mcg by mouth daily. Active simvastatin (ZOCOR) 20 mg Oral Tablet Take by mouth nightly. Active ergocalciferol (VITAMIN D) 50,000 unit Oral Capsule Take by mouth once a week. Active HYDROcodone-acet aminophen (NORCO) 5-325 mg Oral Tablet Take 1-2 Tabs by mouth every 4 hours as needed. 60 Tab 11/27/2015 Active docusate sodium (COLACE) 100 mg Oral Capsule Take 1 Cap by mouth 2 times daily. 60 Cap 2 11/27/2015 Active diazepam (VALIUM) 5 mg Oral Tablet Take 1 Tab by mouth every 8 hours as needed. 42 Tab 11/27/2015 Active Active Problems Problem Noted Date Diagnosed Date Spinal stenosis 11/27/2015 Surgical History Surgery Date Site/Laterality Comments BREAST LUMPECTOMY l. breast LUMBAR DISC SURGERY 11/26/2015 N/A L3/4 LAMINECTOMY ; Surgeon: Davi Ren MD; Location: [facility] OR; Service: Spine Medical History Medical History Date Comments Hypertension Hyperlipidemia Heartburn Arthritis spinal, fingers Thyroid disease Social History Tobacco Use Types Packs/Day Years Used Date Smoking Tobacco: Never Alcohol Use Standard Drinks/Week Comments No 0 (1 standard drink = 0.6 oz pur e alcohol) Comments No Sex and Gender Information Value Date Recorded Sex Assigned at Not on file Legal Sex Female 6:47 AM EDT Gender Identity Not on file Sexual Orientation Not on file Last Filed Vital Signs Vital Sign Reading Time Taken Comments Blood Pressure 137/54 11/27/2015 8:06 AM EDT Pulse 68 11/27/2015 8:06 AM EDT Temperature 37.3 C (99.1 F) 11/27/2015 8:06 AM EDT Respiratory Rate 18 11/27/2015 8:06 AM EDT Oxygen Saturation 100% 11/27/2015 8:06 AM EDT Inhaled Oxygen Concentration - - Weight 61.7 kg (136 lb 1 oz) 11/26/2015 10:21 AM EDT Height 152.4 cm (5') 11/26/2015 10:21 AM EDT Body Mass Index 26.57 11/26/2015 10:21 AM EDT Plan of Treatment Health Maintenance Due Date Last Done Comments Wellness Exam Medicare 08/06/1948 Hepatitis C Screening 1962 Zoster (1 of 2) 1994 Bone Density Screening 2009 RSV or 60+ (1 - 1-dose 75+ series) 08/06/2019 COVID-19 Vaccine ( season) 2024 02/05/2022, 12/31/2020, 05/03/2020, Additional history exists Influenza Vaccine (#1) 2024 2, 01/31/2021, 02/02/2020, Additional history exists DTaP/TDaP/Td (2 - Td or Tdap) 07/17/2026 07/17/2016, 06/02/1996 Pneumococcal Vaccine 50+ Completed 12/07/2017, 050 04/2016 Hepatitis B Vaccine Aged Out No longe r eligible based on patient's age to complete this topic Meningococcal B Vaccine Aged Out No l onger eligible based on patient's age to complete this topic Insurance [employer] MEDICARE PPO MR * Guarantor: Jennifer Mahan Account Type Relation to Patient Date of Phone Billing Address [place] Personal Family Self Advance Directives For more information, please contact: [phone] Documents on File Type Date Recorded Patient Yard Engineer Expl anation Advance Directives/DNR 11/26/2015 5:31 AM Nov 26 2015 09:30:55 :316 GMT * Full Code (Latest Code Status on File) Date Activated Date Inactivated Comments 11/26/2015 10:47 AM 11/27/2015 6:03 PM Care Teams Sfdc Solution Architect Relationship Specialty Start Date End Date Maria Victoria [place] [address] [place] [address] [address] [facility] [place] [address] PCP - General 09/16/10
--- OUTSIDE RECORDS SUMMARY | 2025-02-07 16:45 | XMS_ITS | Clinical Summary ---
Author Organization [facility] Address [address] [place] [id number] Phone Care Team Providers Care Software Developer Name Role Phone Layla MARCELINO, Vannessa Austin [phone] Conditions or Problems Problem Name Problem Code Onset Date Status Entry Date Provider Comment Standard Description Annotate SPONDYLOSIS , CERVICAL 309702546 (SNOMED CT) Active Vannessa Rich MD Cervical spondylosis Medications Medication Instructions Start Date Stop Date Generic Name [facility] Provider LISINOPRIL-HYDROCHLO ROTHIAZIDE 20-12.5 MG TABS lisinopril-hydro chl orothiazide [id number] Re Kat MA AMLODIPINE BESYLATE 2.5 MG TABS TAKE 1 TABLET BY MOUTH ONCE DAILY. amlodipine [id number] Re Kat MA METOPROLOL TARTRATE 25 MG TABS metoprolol tartrate [id number] Omar Kat MA METHYLPREDNISOLONE 4 MG TBPK methylprednisolone [id number] Re Kat MA SIMVASTATIN 20 MG TABS TAKE 1 TABLET BY MOUTH ONCE DAILY. simvastatin [id number] Re Kat MA GABAPENTIN 100 MG CAPS gabapentin [id number] Re Kat MA MECLIZINE HCL 25 MG TABS meclizine [id number] Re Kat MA LEVOTHYROXINE SODIUM 75 MCG TABS levothyroxine [id number] Re Kat MA Medications Administered No information available. Allergies, Adverse Reactions, Alerts Observed no known allergies at Results No information available. Plan of Care No information available. Procedures No information available. Vital Signs Date Name Value Unit Description BMI (Body Mass Index) 24.80 kg/m2 Bod y Mass Index (Ratio) Height 60 [in_us] height E&M Weight Measured 127 [lb_av] weight E& M Weight Measured 127 [lb_av] weight E& M Immunizations No information available. Advance Directives No information available.
== END 2025-02-06 23:59 | disposition home or self-care (01) ==
LOC: LAB.DROPOF 02-07 16:43
PROVIDERS: PCP Nurse Practitioner; Visit Provider Family Medicine
DX: E78.5 Hyperlipidemia, unspecified (principal); R53.83 Other fatigue
CPT/HCPCS: 80053; 80061; 84439; 84443; 85025